=== PATIENT | female | born 1950 | race Caucasian/White ===

== ENCOUNTER 2021-02-09 14:13 | Emergency (ER) | payer MEDICARE, OTHER, SELFPAY ==
[2021-02-09 14:21] VITALS: BP 150/81; PULSE 71; RESP 12; TEMP 36.1; O2SAT 98; BMI 29.2
--- NOTE | 2021-02-09 15:58 | ED_ITS ---
HPI - Neuro Symptoms/Deficit General Chief Complaint: Neuro Symptoms/Deficit Stated Complaint: mom , now has memory loss Time Seen by Provider: 02/09/21 15:49 Source: patient Mode of arrival: Wheelchair Limitations: no limitations History of Present Illness HPI Narrative: Patient is a 70-year-old female here with her to have an MRI. Patient states that early in the morning she received phone call from her sister that her mother had . Patient states she does not remember this phone call in for short time afterwards does not remember anything that was going on. She was seen in outside facility earlier today where she had a workup to include a head CT and a CTA of her head and neck. I do have these notes and the results of the studies to review. It appears that she was treated like a stroke workup. She was eventually discharged from the hospital. Her memory now seems to have returned although she still does not remember everything that happened around the time of the phone call. She stated that the outside facility had talk with her about obtaining an MRI however they did not have 1 available. She was still discharged from the hospital and she comes to this department seeking an MRI because she is going to be traveling home because the events of this morning and wants to make sure is safe for her to travel. On Anticoagulants: No (aspirin 81mg) Related Data Allergies Allergy/AdvReac Type Severity Reaction Status Date / Time Sulfa (Sulfonamide AdvReac Severe Hives Verified 02/09/21 14:24 Antibiotics) Review of Systems Constitutional Constitutional: Denies fever(s) and Denies headache(s) Eyes Eyes: Denies change in vision ENT Ears, Nose, Mouth, and Throat: Denies vertigo, Denies dizziness, Denies headache(s) and Denies disequilibrium Cardiovascular Cardiovascular: Denies chest pain and Denies dyspnea Respiratory Respiratory: Denies dyspnea Gastrointestinal Gastrointestinal: Reports abdominal pain Genitourinary Genitourinary: Denies dysuria Genitourinary: Denies dysuria Musculoskeletal Musculoskeletal: Denies arthralgias, Denies myalgias and Denies tingling Integumentary/Breasts Skin/Breast: Denies lesions and Denies rash Neurologic Neurologic: Denies behavioral changes, Reports confusion, Denies vertigo, Denies dizziness, Denies headache(s), Reports memory loss, Denies convulsions, Denies tingling and Denies disequilibrium Psychiatric Psychiatric: Denies anxiety, Denies behavioral changes, Reports confusion and Reports memory loss Hematologic/Lymphatic On Anticoagulants: No (aspirin 81mg) Allergic/Immunologic Allergic/Immunologic: Denies urticaria Patient History Medical History Patient denies medical problems Social History Smoking Status: Never smoker Smoking Status: Never smoker Substance Use Type: does not use Exam Initial Vital Signs Initial Vital Signs: Vital Signs Temperature 97.0 F L 02/09/21 14:21 Pulse Rate 71 02/09/21 14:21 Respiratory Rate 12 02/09/21 14:21 Blood Pressure 150/81 H 02/09/21 14:21 Pulse Oximetry 98 02/09/21 14:21 Const General: cooperative and comfortable Limitations: mental status not altered HENMT Head: normal to inspection and normocephalic Resp Effort & Inspection: normal respiratory effort Cardio Rate: regular rate Skin Lesions: no lesions Rashes: no rashes Neuro General: patient alert, patient awake and patient oriented x3 Cognition: normal cognition Speech: speech normal Extrem General: capillary refill normal Psych Appearance: grossly normal and well kempt Scores GCS Ramirez coma scale eye opening: Spontaneous [place] coma scale verbal response: Orientated [place] coma scale motor response: Obey commands Ramirez coma scale total score: 15 Course Vital Signs Vital signs: Vital Signs - 8 hr 02/09/21 14:21 Temperature 97.0 F L Pulse Rate 71 Respiratory Rate 12 Blood Pressure 150/81 H Pulse Oximetry 98 MDM - Neuro Symptoms/Deficit MDM Narrative Medical decision making narrative: Patient is alert oriented x3. Has a nonfocal neurologic exam. Her memory seems to have returned since being discharged from the other facility. I have a high suspicion that this was a psychological issue and low concern for CVA/TIA. Unfortunately will also be unable to obtain an MRI given her clinical presentation today. Informed her that if she would like to travel that would be up to her although I felt like it would be okay. She was given return precautions and follow-up instructions. She expressed understanding and agreement. Discharge Plan Departure Patient Disposition: Home Clinical Impression: Transient amnesia Instructions: DI for Amnesia Activity Restrictions/Additional Instructions: Recommend that you continue all of your medications as directed. Contact your primary provider for a follow-up. Return to the emergency department for any new or worsening symptoms Referrals: Jany Erazo ARNP [Primary Care Provider] -
--- NOTE | 2021-02-09 16:03 | PC.NURSE ---
pt reports she got at call that her mom at 0230. reports that it was like a light switch. pt did not remeber anything. she went to the [facility] this am. came her to have an mri. pt GCS 15.
[2021-02-09 16:06] VITALS: BP 147/66; PULSE 66; RESP 16; O2SAT 96
== END 2021-02-09 16:16 | disposition home or self-care (01) ==
PROVIDERS: Emergency Provider Emergency Medicine; PCP Nurse Practitioner Family
DX: R41.3 Other amnesia (principal); R10.9 Unspecified abdominal pain; R41.0 Disorientation, unspecified
CPT/HCPCS: 99281

== ENCOUNTER → 2021-06-07 10:53 | Outpatient (CLI) | payer MEDICARE, OTHER, SELFPAY ==
[2021-06-07 12:43] LABS: BUN Creatinine Ratio 22.5 (6-22); Blood Urea Nitrogen 16 mg/dL (7-17); Calcium 9.7 mg/dL (8.4-10.2); Carbon Dioxide 28 mmol/L (22-32); Chloride 102 mmol/L (98-107); Cholesterol 144 mg/dL (140-199); Estimated Glomerular Filt Rate > 60.0 mL/min (>60); Glucose 96 mg/dL (80-110); HDL Cholesterol 66 mg/dL (40-60); HEMOLYSIS < 15 (0-50); LDL Cholesterol Calculated 54 mg/dL (<100); Potassium 4.3 mmol/L (3.4-5.1); Sodium 139 mmol/L (137-145); Triglycerides 121 mg/dL (35-150)
[2021-06-07 15:24] LABS: Creatinine Urine Random 67.2 mg/dL
[2021-06-07 15:42] LABS: Vitamin D 25 Hydroxy (D3) 81.8 ng/mL (30.0-100.0)
[2021-06-07 15:43] LABS: Microalbumin Urine Random < 0.6 mg/dL (0-1.6)
== END ==
PROVIDERS: PCP Student in an Organized Health Care Education/Training Program; Referring Provider Student in an Organized Health Care Education/Training Program; Visit Provider Student in an Organized Health Care Education/Training Program
DX: E11.9 Type 2 diabetes mellitus without complications (principal); E55.9 Vitamin D deficiency, unspecified
CPT/HCPCS: 36415; 80048; 80061; 82043; 82306; 82570; 83036

== ENCOUNTER 2021-07-24 16:29 | Emergency (ER) | payer MEDICARE, OTHER, SELFPAY ==
[2021-07-24 16:48] VITALS: BP 194/90; PULSE 75; RESP 18; TEMP 36.7; O2SAT 99
--- NOTE | 2021-07-24 16:55 | DI.RAD.S_ITS ---
PROCEDURE: XR SHOULDER LT MIN 2V INDICATIONS: atraumatic shoulder pain TECHNIQUE: 3 views of the shoulder were acquired. COMPARISON: None. FINDINGS: Bones: No acute fractures or dislocations. No suspicious bony lesions. Visualized ribs appear intact. Moderate acromioclavicular osteoarthrosis. Soft tissues: No suspicious soft tissue calcifications. An amorphous calcification is seen posterior to the humeral head, most likely representing calcific tendinopathy. Surgical clips are seen in the left axilla. IMPRESSION: 1. Amorphous calcification posterior to the humeral head is suspicious for calcific tendinitis. 2. Moderate acromioclavicular joint osteoarthrosis. Dictated by: Doc Colby M.D. on 07/24/2021 at 17:36 Approved by: Doc Colby M.D. on 07/24/2021 at 17:37
[2021-07-24] MEDS: CYCLOBENZAPRINE 10 MG TABLET PO (16:58)
[2021-07-24] MEDS: KETOROLAC 30 MG/ML VIAL 15 MG IM (16:58)
[2021-07-24 18:49] VITALS: BP 140/65; PULSE 61; O2SAT 96
--- NOTE | 2021-07-26 11:23 | ED.EXTPRO ---
HPI - Extremity Problem <Brittany Holloway PA-C - Last Filed: 07/26/21 11:42> General Chief complaint: Extremity Problem,Nontraumatic Stated complaint: left shoulder/arm pain in the joint past elbow Time Seen by Provider: 07/24/21 18:28 Source: patient Mode of arrival: Ambulatory Limitations: no limitations History of Present Illness HPI Narrative: 71-year-old female with past medical history type 2 diabetes, hypertension presents to the ED with 2 days of left-sided shoulder pain. Denies trauma. Spontaneous onset of symptoms, aggravated by shoulder, arm movement. Denies numbness, tingling , weakness. Denies chest pain, shortness of breath, fever, chills, nausea, vomiting, lightheadedness, dizziness, syncope. range of movement limited by pain. For Related Data Previous Rx's Medication Instructions Recorded alendronate 70 mg tablet 70 mg PO QWEEK #12 tab 06/12/21 aspirin 81 mg tablet,delayed 81 mg PO DAILY #90 tab 06/12/21 release free style lancets #300 06/12/21 free style test strips #300 06/12/21 lisinopril 10 mg tablet 10 mg PO DAILY #90 tab 06/12/21 metformin 500 mg tablet 1,000 mg PO BID #180 tab 06/12/21 methocarbamol 500 mg tablet 500 mg PO BEDTIME #90 tab 06/12/21 simvastatin 10 mg tablet 10 mg PO BEDTIME #90 tab 06/12/21 Allergies Allergy/AdvReac Type Severity Reaction Status Date / Time Sulfa (Sulfonamide AdvReac Severe Hives Verified 07/24/21 16:52 Antibiotics) Review of Systems <Brittany Holloway PA-C - Last Filed: 07/26/21 11:42> Constitutional Constitutional: Denies chills, Denies fatigue, Denies fever(s), Denies frequent falls, Denies lethargy and Denies weakness Eyes Eyes: Denies change in vision, Denies eye discharge, Denies irritation and Denies loss of vision ENT Ears, Nose, Mouth, and Throat: Denies change in voice, Denies dizziness, Denies neck pain, Denies sore throat and Denies throat swelling Cardiovascular Cardiovascular: Denies chest pain, Denies irregular heart rhythm, Denies lightheadedness, Denies palpitations, Denies dyspnea, Denies dyspnea on exertion and Denies orthopnea Respiratory Respiratory: Denies cough, Denies dyspnea, Denies dyspnea on exertion and Denies wheezing Gastrointestinal Gastrointestinal: Denies abdominal pain, Denies change in bowel habits, Denies diarrhea, Denies nausea and Denies vomiting Musculoskeletal Musculoskeletal: Denies neck pain and Denies numbness Comments: L shoulder, upper arm pain Integumentary/Breasts Skin/Breast: Denies pruritus, Denies erythema, Denies rash and Denies wounds Neurologic Neurologic: Denies behavioral changes, Denies confusion, Denies dizziness, Denies frequent falls, Denies loss of vision, Denies numbness and Denies weakness Psychiatric Psychiatric: Denies anxiety, Denies behavioral changes, Denies confusion, Denies depression, Denies homicidal ideation and Denies suicidal ideation Endocrine Endocrine: Denies fatigue, Denies flushing and Denies palpitations Hematologic/Lymphatic Hematologic/Lymphatic: Denies easy bruising Allergic/Immunologic Allergic/Immunologic: Denies urticaria, Denies throat swelling and Denies wheezing Patient History <Brittany Holloway PA-C - Last Filed: 07/26/21 11:42> Medical History Patient denies medical problems Social History Smoking Status: Never smoker Smoking Status: Never smoker alcohol intake frequency: 0-2 drinks per day Substance Use Type: does not use Exam <Brittany Holloway PA-C - Last Filed: 07/26/21 11:42> Initial Vital Signs Initial Vital Signs: Vital Signs Temperature 98.1 F 07/24/21 16:48 Pulse Rate 75 07/24/21 16:48 Respiratory Rate 18 07/24/21 16:48 Blood Pressure 194/90 H 07/24/21 16:48 Pulse Oximetry 99 07/24/21 16:48 Const General: cooperative HENMT Head: normocephalic and atraumatic Ears: external ears normal and TM's normal bilaterally Nose: external nose normal and No nasal discharge Face and sinus: sinuses nontender, face symmetric, no sinus tenderness and No dry mucous membranes Mouth: oral mucosae normal and moist mucous membranes Teeth and gingiva: dentition normal Throat: tonsils normal and uvula midline Eyes General: appearance normal, both eyes and all related structures Eyelids: eyelids normal Conjunctivae: conjunctivae normal Sclera: sclerae normal Pupils: PERRL EOM: EOM intact bilaterally Neck Neck: normal visual inspection, trachea midline, No lymphadenopathy, No midline deformity and No JVD Lymphatic: No lymphedema Chest Chest: normal inspection of the chest Resp Effort & Inspection: normal respiratory effort, able to speak in complete sentences, no respiratory distress and no use of accessory muscles Auscultation: clear to auscultation bilaterally, no rales, no rhonchi and no wheezes Cardio Rate: regular rate Rhythm: regular rhythm Heart Sounds: no click, no gallops, no murmurs and no rubs Pulses: normal peripheral pulses GI Inspection: non-distended Palpation: soft, no hepatosplenomegaly, No guarding, No pulsatile mass and No tender Auscultation: normal bowel sounds Back/Spine/Pelvis Back: No CVA tenderness Cervical Spine: cervical ROM normal and No pain with cervical ROM Thoracic/Lumbar Spine: thoracic and lumbar spine normal to inspection Skin General: no rashes or lesions noted, No jaundice and No petechiae Neuro General: patient alert, patient oriented x3, gait normal and no focal motor deficits Speech: speech normal Extrem General: no clubbing, cyanosis or edema, no pedal edema and no calf tenderness Other: ROM of left arm, shoulder limited by pain. Neurovascularly intact. Cap refill < 2 sec. Able to touch left and to right shoulder, reassuring for no shoulder dislocation. Psych Appearance: well kempt Mental Status: mental status grossly normal Attitude: cooperative Thought Content: normal and suicidality Judgment: judgment good <Kayley Mclaughlin DO - Last Filed: 07/27/21 08:30> Initial Vital Signs Initial Vital Signs: Vital Signs Temperature 98.1 F 07/24/21 16:48 Pulse Rate 75 07/24/21 16:48 Respiratory Rate 18 07/24/21 16:48 Blood Pressure 194/90 H 07/24/21 16:48 Pulse Oximetry 99 07/24/21 16:48 Course <Brittany Holloway PA-C - Last Filed: 07/26/21 11:42> Course Course Narrative: symptoms improved with Flexeril, Toradol. x-rays shows evidence of calcific tendinitis, negative for fractures, dislocations. Will discharge home with PCP follow-up. Orders Ordered: Discontinued Medications Cyclobenzaprine HCl (Cyclobenzaprine 10 Mg Tablet) 10 mg PO NOW ONE Stop: 07/24/21 16:55 Last Admin: 07/24/21 16:58 Dose: 10 mg Documented by: HENOK Ketorolac Tromethamine (Ketorolac 30 Mg/Ml Vial) 15 mg IM NOW ONE Stop: 07/24/21 16:55 Last Admin: 07/24/21 16:58 Dose: 15 mg Documented by: HENOK <Kayley Mclaughlin DO - Last Filed: 07/27/21 08:30> Orders Ordered: Discontinued Medications Cyclobenzaprine HCl (Cyclobenzaprine 10 Mg Tablet) 10 mg PO NOW ONE Stop: 07/24/21 16:55 Last Admin: 07/24/21 16:58 Dose: 10 mg Documented by: HENOK Ketorolac Tromethamine (Ketorolac 30 Mg/Ml Vial) 15 mg IM NOW ONE Stop: 07/24/21 16:55 Last Admin: 07/24/21 16:58 Dose: 15 mg Documented by: HENOK MDM - Extremity (Nontraumatic) <Brittany Holloway PA-C - Last Filed: 07/26/21 11:42> Imaging Data Shoulder x-ray: Radiologist's Impression: PROCEDURE:? XR SHOULDER LT MIN 2V ? INDICATIONS:? atraumatic shoulder pain ? TECHNIQUE:? 3 views of the shoulder were acquired.? ? COMPARISON:? None. ? FINDINGS:? ? Bones:? No acute fractures or dislocations.? No suspicious bony lesions.? Visualized ribs appear intact.? Moderate acromioclavicular osteoarthrosis. ? Soft tissues:? No suspicious soft tissue calcifications.? An amorphous calcification is seen posterior to the humeral head, most likely representing calcific tendinopathy.? Surgical clips are seen in the left axilla. ? IMPRESSION:? 1. Amorphous calcification posterior to the humeral head is suspicious for calcific tendinitis. 2. Moderate acromioclavicular joint osteoarthrosis. ? ? Dictated by: Doc Colby M.D. on 07/24/2021 at 17:36 ? ? Approved by: Doc Colby M.D. on 07/24/2021 at 17:37 ? MDM Narrative Medical decision making narrative: 71-year-old female with past medical history type 2 diabetes, hypertension presents to the ED with 2 days of left-sided shoulder pain. Concern for fractures, dislocations, sprain, strain. physical exam reassuring, unlikely shoulder dislocation. will give Toradol, Flexeril for pain. Will order x-rays. Likely discharge home. 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 You can take Tylenol for the pain. Return to the ED if worsening symptoms, numbness, tingling, weakness. Follow-up with your primary care provider as soon as possible. Prescriptions: No Action alendronate 70 mg tablet 70 mg PO QWEEK Qty: 12 RF: 3 aspirin 81 mg tablet,delayed release (DR/EC) 81 mg PO DAILY Qty: 90 RF: 3 (DME) free style lancets See Rx Instructions .Route .MEDSUPPLY Qty: 300 RF: 3 (DME) free style test strips See Rx Instructions .Route .MEDSUPPLY Qty: 300 RF: 3 lisinopril 10 mg tablet 10 mg PO DAILY Qty: 90 RF: 3 metformin 500 mg tablet 1,000 mg PO BID Qty: 180 RF: 1 methocarbamol 500 mg tablet 500 mg PO BEDTIME Qty: 90 RF: 3 simvastatin 10 mg tablet 10 mg PO BEDTIME Qty: 90 RF: 3 Referrals: Jaiden Nieves MD [Primary Care Provider] - <Kayley Mclaughlin DO - Last Filed: 07/27/21 08:30> [facility] ED Attending Osbaldoature Attestation: I was immediately available in the department for consultation. Documentation has been reviewed. I agree with assessment and plan.
== END 2021-07-24 18:49 | disposition home or self-care (01) ==
PROVIDERS: Emergency Provider Student in an Organized Health Care Education/Training Program; PCP Student in an Organized Health Care Education/Training Program
DX: M25.512 Pain in left shoulder (principal)
CPT/HCPCS: 73030; 96372; 99283; J1885

== ENCOUNTER → 2021-09-18 10:13 | Outpatient (CLI) | payer MEDICARE, OTHER, SELFPAY ==
--- NOTE | 2021-09-18 10:15 | DI.MG.S_ITS ---
BILATERAL DIGITAL SCREENING MAMMOGRAM 3D/2D WITH CAD WITH AUGMENTATION: 09/18/2021 CLINICAL: Routine screening. Comparison is made to exams dated: 07/28/2020 mammogram, 09/17/2017 mammogram, and 06/30/2012 mammogram - formerly [facility]. There are scattered fibroglandular elements in both breasts. Current study was also evaluated with a Computer Aided Detection (CAD) system. Bilateral breast implants are stable. No significant masses, calcifications, or other findings are seen in either breast. There has been no significant interval change. IMPRESSION: NEGATIVE There is no mammographic evidence of malignancy. A 1 year screening mammogram is recommended. This exam was interpreted at Station ID: [id number]. NOTE: For mammograms, a report in lay terms will be sent to the patient. Approximately 15% of breast malignancies will not be visualized mammographically. In the management of a palpable breast mass, a negative mammogram must not discourage biopsy of a clinically suspicious lesion. Electronically Signed By: Doc flores/nikunj:09/18/2021 11:46:28 letter sent: Normal Exam ACR BI-RADS Category 1: Negative [id number]
== END ==
PROVIDERS: PCP Student in an Organized Health Care Education/Training Program; Referring Provider Student in an Organized Health Care Education/Training Program; Visit Provider Student in an Organized Health Care Education/Training Program
DX: Z12.31 Encounter for screening mammogram for malignant neoplasm of breast (principal)
CPT/HCPCS: 77063; 77067

== ENCOUNTER 2021-12-18 23:31 | Observation (INO) | payer MEDICARE, OTHER, SELFPAY ==
[2021-12-18 23:41] VITALS: PULSE 68; O2SAT 98
[2021-12-18 23:43] VITALS: BP 200/79; PULSE 73; RESP 18; TEMP 37.1; O2SAT 99; BMI 28.5
--- NOTE | 2021-12-18 23:43 | DI.RAD.S_ITS ---
PROCEDURE: XR CHEST 1V INDICATIONS: Chest pain TECHNIQUE: One view of the chest was acquired. COMPARISON: None. FINDINGS: Surgical changes and devices: None. Lungs and pleura: Lungs are clear. No pleural effusions or pneumothorax. Mediastinum: Mediastinal contours appear normal. Heart size is normal. Bones and chest wall: No suspicious bony lesions. Overlying soft tissues appear unremarkable. IMPRESSION: No acute cardiopulmonary process demonstrated radiographically. Dictated by: Alvaro Lewis M.D. on 12/19/2021 at 0:01 Approved by: Alvaro Lewis M.D. on 12/19/2021 at 0:01
[2021-12-18 23:54] VITALS: BP 184/78; PULSE 72; RESP 11; O2SAT 97
--- NOTE | 2021-12-18 23:55 | DI.CT.S_ITS ---
PROCEDURE: CT ANGIO CHEST PE PROTOCOL INDICATIONS: chest pain TECHNIQUE: After the administration of intravenous contrast, 2 mm thick sections acquired from the pulmonary apices to the posterior costophrenic angles. 3-dimensional maximum intensity projection (MIP) coronal and sagittal reformats were then acquired through the thorax. For radiation dose reduction, the following was used: automated exposure control, adjustment of mA and/or kV according to patient size. COMPARISON: None. FINDINGS: Image quality: Excellent. Pulmonary arteries: Pulmonary arteries are normal in size, and demonstrate no intraluminal filling defects to suggest central pulmonary embolism. Lungs and pleura: Lungs are clear. No pleural effusions or pneumothorax. Central and peripheral airways are patent. Mediastinum: Heart size is normal, without pericardial effusion. No mediastinal or hilar adenopathy. Thoracic aorta is normal in caliber and enhancement. Esophagus is normal in caliber, without hiatal hernia. Bones and chest wall: No suspicious bony lesions. Ribs and thoracic spine appear intact throughout. Thyroid gland uniform. No axillary or supraclavicular adenopathy. Abdomen: Visualized upper abdominal solid organs appear normal in the early arterial phase of enhancement. IMPRESSION: No acute finding in the chest. Dictated by: Alvaro Lewis M.D. on 12/19/2021 at 1:08 Approved by: Alvaro Lewis M.D. on 12/19/2021 at 1:09
--- NOTE | 2021-12-18 23:58 | ED_ITS ---
HPI - Chest Pain General Chief Complaint: Chest Pain Stated Complaint: mild tightness/chest pain x1 hour Time Seen by Provider: 12/18/21 23:47 Source: patient Mode of arrival: Ambulatory Limitations: no limitations History of Present Illness HPI narrative: Patient here with . Complains sudden onset of substernal chest pressure that radiated to her back. Both sides. No nausea or sweating. No syncope. No numbness tingling weakness. Pain is improved now. Rates 3/10. No history of coronary disease. No history of aneurysms. Blood pressure noted. It is higher than her baseline according to patient. Patient no distress. No abdominal pain. Related Data Previous Rx's Medication Instructions Recorded alendronate 70 mg tablet 70 mg PO QWEEK #12 tab 06/12/21 aspirin 81 mg tablet,delayed 81 mg PO DAILY #90 tab 06/12/21 release free style lancets #300 06/12/21 free style test strips #300 06/12/21 lisinopril 10 mg tablet 10 mg PO DAILY #90 tab 06/12/21 simvastatin 10 mg tablet 10 mg PO BEDTIME #90 tab 06/12/21 methocarbamol 500 mg tablet 1,000 mg PO Q8H #90 tab 08/01/21 metformin 500 mg tablet 1,000 mg PO BID #240 tab 11/30/21 Allergies Allergy/AdvReac Type Severity Reaction Status Date / Time Sulfa (Sulfonamide AdvReac Severe Hives Verified 08/02/21 14:33 Antibiotics) Review of Systems Review of Systems Narrative: GENERAL: Denies chills, fatigue, malaise, fever, sweats. HEENT: Denies sinus pain, ear pain, sore throat RESPIRATORY: Denies dyspnea, cough CARDIOVASCULAR: Positive chest pain, negative for palpitations GASTROINTESTINAL: Denies nausea, vomiting, abdominal pain : Denies dysuria, frequency, hematuria MUSCULOSKELETAL: denies muscle or bony pain SKIN: Denies rash, skin lesions NEUROLOGIC: Denies weakness, numbness ROS Unobtainable: All systems reviewed & are unremarkable except as noted in HPI and below Patient History Medical History (Updated 12/19/21 @ 05:42 by DARIUSZ Da Silva-) Essential hypertension Hyperlipidemia associated with type 2 diabetes mellitus Non-insulin dependent type 2 diabetes mellitus Osteoporosis Patient denies medical problems Surgical History (Updated 12/19/21 @ 05:42 [facility] History of ankle surgery History of cholecystectomy History of gastric bypass Family History Mother Heart disease Diabetes mellitus Father Heart disease Cancer Social History Smoking Status: Never smoker Smoking Status: Never smoker alcohol intake frequency: 0-2 drinks per day Substance Use Type: does not use Exam Narrative Exam Narrative: GENERAL: in no distress, not toxic not dyspneic HEAD: Normocephalic. EYES: Pupils equal round No scleral icterus. ENT: Mucous membranes moist. NECK: Trachea midline. CARDIOVASCULAR: Regular rate and rhythm without murmurs RESPIRATORY: Clear to auscultation. Breath sounds equal bilaterally. No wheezes, rales, or rhonchi. GASTROINTESTINAL: Abdomen soft, non-tender EXTREMITIES: No gross deformities. BACK: No flank tenderness. NEURO: AOx4. Clear speech SKIN: Warm and dry PSYCH: Not anxious, is cooperative Initial Vital Signs Initial Vital Signs: Vital Signs Pulse Rate 68 12/18/21 23:41 Pulse Oximetry 98 12/18/21 23:41 Course Course Course Narrative: No new issues during course of stay. Blood pressure improved at time of admission. Orders Ordered: ED Orders 12/18/21 23:43 XR chest 1V Stat EKG-12 Lead Stat 12/18/21 23:52 Complete Blood Count AUTO DIFF Stat Comprehensive Metabolic Panel Stat Lipase Stat Magnesium Stat Troponin & CK Cardiac Panel Stat 12/18/21 23:55 CT angio chest PE protocol Stat 12/18/21 23:59 COVID19 -Nasal swab/Pre-Proc Stat 12/19/21 02:06 Trop I [Troponin I] Stat Acetaminophen (Acetaminophen 325 Mg Tablet) 650 mg PO Q6HR PRN PRN Reason: Fever/Mild Pain (1-3) Aspirin (Aspirin Ec 81 Mg Tablet) 81 mg PO DAILY [place] Atorvastatin Calcium (Atorvastatin 20 Mg Tablet) 10 mg PO BEDTIME [place] Dextrose (Dextrose 50 % In Water 25 Gm/50 Ml Syringe) 25 gm IV PRN PRN PRN Reason: Hypoglycemia Enoxaparin Sodium (Enoxaparin 40 Mg/0.4 Ml Syringe) 40 mg SUBCUT DAILY [place] Insulin Human Lispro (Insulin Lispro 100 Unit/Ml 3ml Vial) 0 unit SUBCUT ACHS [place]; Protocol Lisinopril (Lisinopril 10 Mg Tablet) 10 mg PO DAILY [place] Metformin HCl (Metformin Hcl 500 Mg Tablet) 1,000 mg PO BID [place] Methocarbamol (Methocarbamol 500 Mg Tablet) 1,000 mg PO Q8H [place] Morphine Sulfate (Morphine 2 Mg/Ml Inj) 2 mg IV Q5MIN PRN PRN Reason: Chest Pain Naloxone HCl (Naloxone 0.4 Mg/Ml Vial) 0.2 mg IV Q2MIN PRN PRN Reason: Opiate Reversal Nitroglycerin (Nitroglycerin 0.4 Mg Sl Tab) 0.4 mg SL [id number] PRN PRN Reason: Chest Pain Ondansetron HCl (Ondansetron 4 Mg/2 Ml Inj) 4 mg IV Q8HR PRN PRN Reason: Nausea And Vomiting Discontinued Medications Aspirin (Aspirin 81 Mg Chew Tab) 243 mg PO NOW ONE Stop: 12/19/21 01:57 Last Admin: 12/19/21 02:14 Dose: 243 mg Documented by: LEIGHANN Sodium Chloride (Normal Saline 0.9%) 500 mls @ 1,000 mls/hr IV BOLUS ONE Stop: 12/19/21 00:27 Last Infusion: 12/19/21 01:04 Dose: 0 mls/hr Documented by: Admin: 12/19/21 00:22 Dose: 1,000 mls/hr Documented by: LEIGHANN Reevaluation(s) Reevaluation #1: Reviewed with patient and has been results. Blood pressure 132/60. Has improved markedly. No chest pain. Patient did take baby aspirin prior to arrival. They agree for observation admission for stress test. Time: 02:06 Consultations Consultation #1: Spoke with hospitalist, Elle Robles, will admit observation and for stress test. Time: 02:05 Vital Signs Vital signs: Vital Signs - 8 hr 12/18/21 23:41 12/18/21 23:43 12/18/21 23:54 Temperature 98.7 F Pulse Rate 68 73 72 Respiratory Rate 18 11 L Blood Pressure 200/79 H 184/78 H Pulse Oximetry 98 99 97 12/19/21 00:00 12/19/21 00:36 12/19/21 01:00 Temperature Pulse Rate 66 68 62 Respiratory Rate 19 20 10 L Blood Pressure 186/78 H Pulse Oximetry 98 97 95 12/19/21 01:03 12/19/21 01:30 12/19/21 02:00 Temperature Pulse Rate 64 64 65 Respiratory Rate 14 12 16 Blood Pressure 147/67 H 132/60 132/61 Pulse Oximetry 97 95 96 MDM - Chest Pain Differential Diagnosis Differential diagnosis: Likely stable angina, unstable angina pectoris, atypical chest pain, st elevation myocardial infarction and chest pain Lab Data Result diagrams: 12/18/21 23:52 12/18/21 23:52 Labs: Lab Results 12/18/21 12/18/21 12/18/21 Range/Units 23:52 23:52 23:59 WBC 7.5 (4.5-11.0) X10^3/uL RBC 3.97 L (4.0-5.2) X10^6/uL Hgb 11.9 L (12.0-16.0) g/dL Hct 35.8 L (36-46) % MCV 90.2 (80-100) fL MCH 29.8 (26-34) PG MCHC 33.1 (30-36) % RDW 13.2 (11.6-14.8) % Plt Count 227 (150-400) X10^3/uL Neut % (Auto) 48.0 L (50-75) % Lymph % (Auto) 38.4 (25-40) % [place] % (Auto) 10.7 (3-14) % Eos % (Auto) 1.9 L (2-4) % Baso % (Auto) 1.0 (0-2) % Neut # (Auto) 3600 (0112-5960) /uL Lymph # (Auto) 2900 (5197-4419) /uL [place] # (Auto) 800 (0-900) /uL Eos # (Auto) 100 (0-450) /uL Baso # (Auto) 100 (0-100) /uL Sodium 138 (137-145) mmol/L Potassium 3.8 (3.4-5.1) mmol/L Chloride 104 (98-107) mmol/L Carbon Dioxide 29 (22-32) mmol/L BUN 20 H (7-17) mg/dL Creatinine 0.75 (0.52-1.04) mg/dL Estimated GFR > 60.0 (>60) mL/min BUN/Creatinine Ratio 26.7 H (6-22) Glucose 111 H (80-110) mg/dL Calcium 9.7 (8.4-10.2) mg/dL Magnesium 1.9 (1.6-2.3) mg/dL Total Bilirubin 0.3 (0.2-1.3) mg/dL AST 32 (14-36) IU/L ALT 26 (<35) IU/L Alkaline Phosphatase 57 (38-126) U/L Total Creatine Kinase 63 (30-135) U/L CK-MB (CK-2) TNP CK-MB (CK-2) Rel Index TNP Troponin I < 0.012 (0.01-0.034) ng/mL Total Protein 7.2 (6.3-8.2) g/dL Albumin 4.3 (3.5-5.0) g/dL Globulin 2.9 (1.7-4.1) g/dL Albumin/Globulin Ratio 1.5 (1.0-2.8) Lipase 145 (23-300) U/L SARS-CoV-2 (PCR) Negative (Negative) 12/19/21 Range/Units 02:06 WBC (4.5-11.0) X10^3/uL RBC (4.0-5.2) X10^6/uL Hgb (12.0-16.0) g/dL Hct (36-46) % MCV (80-100) fL MCH (26-34) PG MCHC (30-36) % RDW (11.6-14.8) % Plt Count (150-400) X10^3/uL Neut % (Auto) (50-75) % Lymph % (Auto) (25-40) % [place] % (Auto) (3-14) % Eos % (Auto) (2-4) % Baso % (Auto) (0-2) % Neut # (Auto) (7903-8491) /uL Lymph # (Auto) (5729-0406) /uL [place] # (Auto) (0-900) /uL Eos # (Auto) (0-450) /uL Baso # (Auto) (0-100) /uL Sodium (137-145) mmol/L Potassium (3.4-5.1) mmol/L Chloride (98-107) mmol/L Carbon Dioxide (22-32) mmol/L BUN (7-17) mg/dL Creatinine (0.52-1.04) mg/dL Estimated GFR (>60) mL/min BUN/Creatinine Ratio (6-22) Glucose (80-110) mg/dL Calcium (8.4-10.2) mg/dL Magnesium (1.6-2.3) mg/dL Total Bilirubin (0.2-1.3) mg/dL AST (14-36) IU/L ALT (<35) IU/L Alkaline Phosphatase (38-126) U/L Total Creatine Kinase (30-135) U/L CK-MB (CK-2) CK-MB (CK-2) Rel Index Troponin I < 0.012 (0.01-0.034) ng/mL Total Protein (6.3-8.2) g/dL Albumin (3.5-5.0) g/dL Globulin (1.7-4.1) g/dL Albumin/Globulin Ratio (1.0-2.8) Lipase (23-300) U/L SARS-CoV-2 (PCR) (Negative) Imaging Data Chest x-ray: Radiologist's Impression: [place] [address] XRay Report Signed Patient: Mery Bishop MR#: [id number] : 1950 Acct:[id number] Age/Sex: 71 / F Date of Service: 12/18/21 Loc: ED Accession Number: [id number] ?? Procedure: XR chest 1V Ordering Provider: Javier Hall MD PROCEDURE:? XR CHEST 1V ? INDICATIONS:? Chest pain ? TECHNIQUE:? One view of the chest was acquired.? ? COMPARISON:? None. ? FINDINGS:? ? Surgical changes and devices:? None.? ? Lungs and pleura:? Lungs are clear.? No pleural effusions or pneumothorax.? ? Mediastinum:? Mediastinal contours appear normal.? Heart size is normal.? ? Bones and chest wall:? No suspicious bony lesions.? Overlying soft tissues appear unremarkable.? ? IMPRESSION:? No acute cardiopulmonary process demonstrated radiographically. ? ? Dictated by: Alvaro Lewis M.D. on 12/19/2021 at 0:01 ? ? Approved by: Alvaro Lewis M.D. on 12/19/2021 at 0:01 ? CT scan - chest: Radiologist's Impression: [address] [address] [address] Scan Report Signed Patient: Mery Bishop MR#: [id number] : 1950 Acct:[id number] Age/Sex: 71 / F Date of Service: 12/18/21 Loc: ED Accession Number: [id number] ?? Procedure: CT angio chest PE protocol Ordering Provider: Javier Hall MD PROCEDURE:? CT ANGIO CHEST PE PROTOCOL ? INDICATIONS:? chest pain ? TECHNIQUE:? After the administration of intravenous contrast, 2 mm thick sections acquired from the pulmonary apices to the posterior costophrenic angles.? 3-dimensional maximum intensity projection (MIP) coronal and sagittal reformats were then acquired through the thorax.? For radiation dose reduction, the following was used:? automated exposure control, adjustment of mA and/or kV according to patient size.? ? COMPARISON:? None. ? FINDINGS:? Image quality:? Excellent.? ? Pulmonary arteries:? Pulmonary arteries are normal in size, and demonstrate no intraluminal filling defects to suggest central pulmonary embolism.? ? Lungs and pleura:? Lungs are clear.? No pleural effusions or pneumothorax.? Central and peripheral airways are patent.? ? Mediastinum:? Heart size is normal, without pericardial effusion.? No mediastinal or hilar adenopathy.? Thoracic aorta is normal in caliber and enhancement.? Esophagus is normal in caliber, without hiatal hernia.? ? Bones and chest wall:? No suspicious bony lesions.? Ribs and thoracic spine appear intact throughout.? Thyroid gland uniform.? No axillary or supraclavicular adenopathy.? ? Abdomen:? Visualized upper abdominal solid organs appear normal in the early arterial phase of enhancement.? ? IMPRESSION:? No acute finding in the chest. ? ? Dictated by: Alvaro Lewis M.D. on 12/19/2021 at 1:08 ? ? Approved by: Alvaro Lewis M.D. on 12/19/2021 at 1:09 ? ECG Data Interpretation: Normal sinus rhythm rate [address] elevation or depression. Normal EKG MDM Narrative Medical decision making narrative: Appropriate for admission. Patient will be boarded here in the department due to bed shortage. Appropriate for stress test. Examined laboratory studies and imaging otherwise reassuring. Discharge Plan Departure Patient Disposition: Admitted as Observation Clinical Impression: Chest pain Admit Date/Time: 12/19/21 02:07 Admit Provider: Elle Robles
[2021-12-19] VITALS (25 sets, daily range): BP systolic 120–186; BP diastolic 59–78; PULSE 51–103; RESP 10–20; TEMP 36.1–36.7; O2SAT 95–99; BMI 28.5
[2021-12-19 00:06] LABS: Add Manual Diff / Slide Review NO; Basophils Absolute Auto 100 /uL (0-100); Eosinophils Absolute Auto 100 /uL (0-450); Eosinophils Percent Auto 1.9 % (2-4); Hematocrit 35.8 % (36-46); Hemoglobin 11.9 g/dL (12.0-16.0); Lymphocytes Absolute Auto 2900 /uL (1100-4500); Lymphocytes Percent Auto 38.4 % (25-40); Mean Corpuscular HGB Conc 33.1 % (30-36); Mean Corpuscular Hemoglobin 29.8 PG (26-34); Mean Corpuscular Volume 90.2 fL (80-100); Monocytes Absolute Auto 800 /uL (0-900); Monocytes Percent Auto 10.7 % (3-14); Neutrophils Absolute Auto 3600 /uL (1500-7000); Platelet Count 227 X10^3/uL (150-400); Red Blood Cell Count 3.97 X10^6/uL (4.0-5.2); Red Cell Distribution Width 13.2 % (11.6-14.8); White Blood Cell Count 7.5 X10^3/uL (4.5-11.0)
[2021-12-19 00:13] LABS: Alanine Aminotransferase 26 IU/L (<35); Albumin 4.3 g/dL (3.5-5.0); Albumin Globulin Ratio 1.5 (1.0-2.8); Alkaline Phosphatase 57 U/L (38-126); Aspartate Aminotransferase 32 IU/L (14-36); BUN Creatinine Ratio 26.7 (6-22); Bilirubin Total 0.3 mg/dL (0.2-1.3); Blood Urea Nitrogen 20 mg/dL (7-17); Calcium 9.7 mg/dL (8.4-10.2); Carbon Dioxide 29 mmol/L (22-32); Chloride 104 mmol/L (98-107); Creatine Kinase 63 U/L (30-135); Estimated Glomerular Filt Rate > 60.0 mL/min (>60); Globulin 2.9 g/dL (1.7-4.1); Glucose 111 mg/dL (80-110); HEMOLYSIS < 15 (0-50); Lipase 145 U/L (23-300); Magnesium 1.9 mg/dL (1.6-2.3); Potassium 3.8 mmol/L (3.4-5.1); Sodium 138 mmol/L (137-145); Total Protein 7.2 g/dL (6.3-8.2)
[2021-12-19 00:21] LABS: COVID19 -Nasal RAPID Negative (Negative)
[2021-12-19] MEDS: SODIUM CHLORIDE 0.9% 500 ML 1000 ML IV (00:22)
[2021-12-19 00:24] LABS: Troponin I < 0.012 ng/mL (0.01-0.034)
[2021-12-19] MEDS: ASPIRIN 81 MG CHEW TAB 243 MG PO (02:14)
[2021-12-19 02:37] LABS: Troponin I < 0.012 ng/mL (0.01-0.034)
--- NOTE | 2021-12-19 04:29 | PM.HP.1 ---
History of Present Illness History of Present Illness Date Patient Seen: 12/19/21 Time Patient Seen: 02:36 Chief complaint: mild tightness/chest pain x1 hour Narrative: Mery Bishop is a 71 year old female with a history of essential hypertension, hyperlipidemia diabetes, and chronic low back pain who was brought into the ED by her spouse complaining of sudden onset of substernal Banding, squeezing chest pressure that radiated bilaterally to her back.? Intense pain lasted approximately 5 minutes, entirety of chest pain episode lasted for approximately 1 hour. Pain resolved in ED. ? Patient denies history of coronary disease, aneurysms, abd pain, nausea, Vomiting, sweating, syncope, Cough, upper resp. s/s, numbness, tingling, weakness, falls, changes in vision, recent illness,injury or trauma.? Patient initially presented with the blood pressure 200/79, which improved with resolution of chest pain. Patient has never had an event like this prior, no changes in medication, positive family history of heart disease. Patient's admitting vitals temp 98.7?, BP 132/60, HR 64, RR 12, O2 saturation 95% on room air. HGB 11.9, HCT 35.8, CMP-WNL, troponin WNL, EKG sinus rhythm, chest x-ray no acute cardiopulmonary processes, chest CTA negative for dissection, or PE. Patient admitted for chest pain rule. Patient History Medical History (Updated 12/19/21 @ 05:42 by MADELEINE Da Silva) Essential hypertension Hyperlipidemia associated with type 2 diabetes mellitus Non-insulin dependent type 2 diabetes mellitus Osteoporosis Patient denies medical problems Surgical History (Updated 12/19/21 @ 05:42 by MADELEINE Da Silva) History of ankle surgery History of cholecystectomy History of gastric bypass Family & Social History Family History Mother Heart disease Diabetes mellitus Father Heart disease Cancer Safety & Behavioral: Feels Safe in Current Yes Environment Tobacco & Substance use: Smoking Status Never smoker alcohol intake frequency 0-2 drinks per day Substance Use Type does not use Meds Home Medications and Allergies Home Medications Medication Instructions Recorded Confirmed Type alendronate 70 mg tablet 70 mg PO QWEEK #12 tab 06/12/21 08/02/21 Rx aspirin 81 mg tablet,delayed 81 mg PO DAILY #90 tab 06/12/21 08/02/21 Rx release free style lancets #300 06/12/21 08/02/21 Rx free style test strips #300 06/12/21 08/02/21 Rx lisinopril 10 mg tablet 10 mg PO DAILY #90 tab 06/12/21 08/02/21 Rx simvastatin 10 mg tablet 10 mg PO BEDTIME #90 tab 06/12/21 08/02/21 Rx methocarbamol 500 mg tablet 1,000 mg PO Q8H #90 tab 08/01/21 08/02/21 Rx metformin 500 mg tablet 1,000 mg PO BID #240 tab 11/30/21 Rx Allergies Allergy/AdvReac Type Severity Reaction Status Date / Time Sulfa (Sulfonamide AdvReac Severe Hives Verified 08/02/21 14:33 Antibiotics) Review of Systems Review of Systems Narrative: All 12 point systems reviewed with the patient and are negative except otherwise documented. Exam Vital Signs (past 8 hours): - 12/18/21 23:41 12/18/21 23:43 12/18/21 23:54 Temperature 98.7 F Pulse Rate 68 73 72 Respiratory Rate 18 11 L Blood Pressure 200/79 H 184/78 H Pulse Oximetry 98 99 97 12/19/21 00:00 12/19/21 00:36 12/19/21 01:00 Temperature Pulse Rate 66 68 62 Respiratory Rate 19 20 10 L Blood Pressure 186/78 H Pulse Oximetry 98 97 95 12/19/21 01:03 12/19/21 01:30 12/19/21 02:00 Temperature Pulse Rate 64 64 65 Respiratory Rate 14 12 16 Blood Pressure 147/67 H 132/60 132/61 Pulse Oximetry 97 95 96 Oxygen Delivery Method Room Air Narrative Exam Narrative: General: Patient is a well-developed, well-nourished female in no distress at this time. HEENT: Normocephalic, atraumatic, extraocular muscles intact, oral pharynx is clear and mucous membranes are moist. Neck is supple and symmetric, trachea is midline, no adenopathy, no thyroid enlargement, nontender, no masses palpated. Negative for JVD Chest: Normal AP diameter and contour without kyphoscoliosis, no nasal flaring, retractions, or tachypneic labored Lungs: Auscultation of all lung stoner are clear without adventitious sounds, wheezes, rhonchi, or rales. Cardio: S1 & S2 with regular rate and rhythm without murmur, rubs, or gallops, no carotid bruit, no cardiac pulsations present. Abdomen: Soft nontender, negative for organomegaly, or masses. Bowel sounds are present in all 4 quadrants without guarding or rebound, no CVA tenderness. Musculoskeletal: Muscle strength and tone are equal within normal limits, no deformity, crepitus, effusions, cyanosis, clubbing or edema present. Full range of motion intact radial and pedal pulses are normal. Skin: Warm dry and intact without rashes, ulcerations or petechiae. Neuro: Alert and orientated x3, strength is +5/5 in all extremities, sensation to touch intact, no gross deficits noted of cranial nerves. Psych: Patient has a well-kept appearance, appropriate affect, mental status attitude thought context and judgment are appropriate for age. Objective Labs Result Diagrams: 12/18/21 23:52 12/18/21 23:52 Labs: Laboratory Results - last 24 hr 12/18/21 12/18/21 12/18/21 23:52 23:52 23:59 WBC 7.5 RBC 3.97 L Hgb 11.9 L Hct 35.8 L MCV 90.2 MCH 29.8 MCHC 33.1 RDW 13.2 Plt Count 227 Neut % (Auto) 48.0 L Lymph % (Auto) 38.4 [place] % (Auto) 10.7 Eos % (Auto) 1.9 L Baso % (Auto) 1.0 Neut # (Auto) 3600 Lymph # (Auto) 2900 [place] # (Auto) 800 Eos # (Auto) 100 Baso # (Auto) 100 Sodium 138 Potassium 3.8 Chloride 104 Carbon Dioxide 29 BUN 20 H Creatinine 0.75 Estimated GFR > 60.0 BUN/Creatinine Ratio 26.7 H Glucose 111 H Calcium 9.7 Magnesium 1.9 Total Bilirubin 0.3 AST 32 ALT 26 Alkaline Phosphatase 57 Total Creatine Kinase 63 CK-MB (CK-2) TNP CK-MB (CK-2) Rel Index TNP Troponin I < 0.012 Total Protein 7.2 Albumin 4.3 Globulin 2.9 Albumin/Globulin Ratio 1.5 Lipase 145 SARS-CoV-2 (PCR) Negative 12/19/21 02:06 WBC RBC Hgb Hct MCV MCH MCHC RDW Plt Count Neut % (Auto) Lymph % (Auto) [place] % (Auto) Eos % (Auto) Baso % (Auto) Neut # (Auto) Lymph # (Auto) [place] # (Auto) Eos # (Auto) Baso # (Auto) Sodium Potassium Chloride Carbon Dioxide BUN Creatinine Estimated GFR BUN/Creatinine Ratio Glucose Calcium Magnesium Total Bilirubin AST ALT Alkaline Phosphatase Total Creatine Kinase CK-MB (CK-2) CK-MB (CK-2) Rel Index Troponin I < 0.012 Total Protein Albumin Globulin Albumin/Globulin Ratio Lipase SARS-CoV-2 (PCR) Assessment & Plan Assessment & Plan narrative: Mery Bishop is a 71 year old female with a history of essential hypertension, hyperlipidemia, diabetes, and chronic low back pain who presented with sudden onset of substernal Banding, squeezing chest pressure that radiated bilaterally to her back, and presenting B/P of 200/79, and a heart score of 5. Patient will be admitted for risk stratification and workup for chest pain rule out. 1. Chest pain (substernal squeezing band like radiating pain bilaterally to back), acute, in the setting of essential hypertension, acute on chronic, present on admission -Heart Score:5, initial B/P200/79, on admit 132/60 -Continue atorvastatin, ASA -Risk stratification -echo & stress test ordered for tomorrow -Lipids, A1C, TSH, will trend troponin -Troponin <0.012 -Ortho stats 2. Llo-Gotozcy-rxvawkvht type 2 diabetes, acute on chronic, resulting in secondary Hyperlipidemia, chronic, present on admission -patient admitted on diabetes protocol, blood sugar checks a.c. HS -Admit BS 111 -A1c ordered -Low dose sliding scale -continue metformin 3. Overweight as evidence by BMI of 28.5, acute on chronic, present on admission -consider dietary counseling 4. Chronic low back pain, chronic, present on admission -continue methocarbamol Code status:Full Surrogate decision maker: Spouse Antolin Bishop COVID PCR:Negative COVID vaccination: Pfizer plus booster DVT/VTE prophylaxis:LOvenox 40mg & scd's Disposition: Patient admitted for observation expected length of stay less than 2 midnights. I have utilized all available immediate resources to obtain, update, or review the patient's current medications. I confirmed that the patient's advanced care plan is present, Code status is documented and/or surrogate decision maker is listed in the patient's medical record. Time Spent With Patient Critical Care time: I spent a total of [] minutes of critical care time on this patient's care today; this time is exclusive of procedural time. Scores GCS Ramirez coma scale eye opening: Spontaneous Ramirez coma scale verbal response: Orientated Ramirez coma scale motor response: Obey commands [place] coma scale total score: 15
[2021-12-19 07:27] LABS: Cholesterol 145 mg/dL (140-199); HDL Cholesterol 61 mg/dL (40-60); LDL Cholesterol Calculated 65 mg/dL (<100); Triglycerides 97 mg/dL (35-150)
[2021-12-19 07:30] LABS: Hemoglobin A1C% w Est Avg Glu 6.5 % (4.0-6.0)
[2021-12-19 07:39] LABS: NT-proBNP (BNP-Adult 18+) 450 pg/mL (<125)
[2021-12-19 07:58] LABS: TSH w/ Reflex to FT4 8.25 uIU/mL (0.47-4.68)
[2021-12-19 08:29] LABS: Free T4, Direct Thyroxine 1.29 ng/dL (0.78-2.19)
[2021-12-19] MEDS: ENOXAPARIN 40 MG/0.4 ML SYRINGE SUBCUT (08:47)
[2021-12-19] MEDS: METFORMIN HCL 500 MG TABLET 1000 MG PO ×2 (08:47→20:46)
[2021-12-19] MEDS: lisinopriL 10 MG TABLET PO (08:47)
[2021-12-19] MEDS: ASPIRIN EC 81 MG TABLET PO (08:47)
[2021-12-19] MEDS: methocarbamoL 500 MG TABLET 1000 MG PO ×2 (08:47→23:02)
--- NOTE | 2021-12-19 10:21 | PC.NURSE ---
0815 Pt to room 202 via w/c from ER. Pt is awake, alert, and oriented x3. Pt denies pain, chest pain, nausea, or shortness of breath. Spouse Antolin is at the bedside. Pt oriented to room, call light, bed controls, and tv controls. Requested Pt call for assisted as needed.
--- NOTE | 2021-12-19 14:30 | PM.PN.1 ---
Subjective Subjective Date Patient Seen: 12/19/21 Time Patient Seen: 08:00 Interval history: Today she notes her chest pain has resolved. She feels much improved. Exam Vital Signs (past 8 hours): - 12/19/21 07:00 12/19/21 08:00 12/19/21 08:51 Temperature 97 F L Pulse Rate 58 L 62 58 L Pulse Rate [Orthostatic Lying] 54 L Pulse Rate [Orthostatic Sitting] 58 L Pulse Rate [Orthostatic Standing] 58 L Respiratory Rate 13 12 Blood Pressure 150/76 H 142/67 H Blood Pressure [Orthostatic Lying] 130/60 Blood Pressure [Orthostatic Sitting] 141/67 H Blood Pressure [Orthostatic Standing] 146/67 H Pulse Oximetry 98 97 12/19/21 09:13 12/19/21 12:00 12/19/21 13:00 Temperature 97.2 F L Pulse Rate 54 L Pulse Rate [Orthostatic Lying] Pulse Rate [Orthostatic Sitting] Pulse Rate [Orthostatic Standing] Respiratory Rate 14 Blood Pressure 130/60 Blood Pressure [Orthostatic Lying] Blood Pressure [Orthostatic Sitting] Blood Pressure [Orthostatic Standing] Pulse Oximetry 97 99 99 Oxygen Delivery Method Room Air Oxygen Flow Rate 0 Narrative Exam Narrative: GEN: no acute distress CV: regular rate and rhythm, no murmurs PULM: clear bilaterally, no wheezes, rhonchi, rales ABD: soft, nontender, nondistended, no organomegaly Objective Labs Result Diagrams: 12/18/21 23:52 12/18/21 23:52 Labs: Laboratory Results - last 24 hr 12/18/21 12/18/21 12/18/21 23:52 23:52 23:59 WBC 7.5 RBC 3.97 L Hgb 11.9 L Hct 35.8 L MCV 90.2 MCH 29.8 MCHC 33.1 RDW 13.2 Plt Count 227 Neut % (Auto) 48.0 L Lymph % (Auto) 38.4 [place] % (Auto) 10.7 Eos % (Auto) 1.9 L Baso % (Auto) 1.0 Neut # (Auto) 3600 Lymph # (Auto) 2900 [place] # (Auto) 800 Eos # (Auto) 100 Baso # (Auto) 100 Sodium 138 Potassium 3.8 Chloride 104 Carbon Dioxide 29 BUN 20 H Creatinine 0.75 Estimated GFR > 60.0 BUN/Creatinine Ratio 26.7 H Glucose 111 H Hemoglobin A1c Calcium 9.7 Magnesium 1.9 Total Bilirubin 0.3 AST 32 ALT 26 Alkaline Phosphatase 57 Total Creatine Kinase 63 CK-MB (CK-2) TNP CK-MB (CK-2) Rel Index TNP Troponin I < 0.012 NT-Pro-B Natriuret Pep Total Protein 7.2 Albumin 4.3 Globulin 2.9 Albumin/Globulin Ratio 1.5 Triglycerides Cholesterol LDL Cholesterol, Calc HDL Cholesterol Lipase 145 TSH Free T4 SARS-CoV-2 (PCR) Negative 12/19/21 12/19/21 12/19/21 02:06 06:53 06:53 WBC RBC Hgb Hct MCV MCH MCHC RDW Plt Count Neut % (Auto) Lymph % (Auto) [place] % (Auto) Eos % (Auto) Baso % (Auto) Neut # (Auto) Lymph # (Auto) [place] # (Auto) Eos # (Auto) Baso # (Auto) Sodium Potassium Chloride Carbon Dioxide BUN Creatinine Estimated GFR BUN/Creatinine Ratio Glucose Hemoglobin A1c 6.5 H Calcium Magnesium Total Bilirubin AST ALT Alkaline Phosphatase Total Creatine Kinase CK-MB (CK-2) CK-MB (CK-2) Rel Index Troponin I < 0.012 NT-Pro-B Natriuret Pep 450 H Total Protein Albumin Globulin Albumin/Globulin Ratio Triglycerides 97 Cholesterol 145 LDL Cholesterol, Calc 65 HDL Cholesterol 61 H Lipase TSH Free T4 SARS-CoV-2 (PCR) 12/19/21 06:53 WBC RBC Hgb Hct MCV MCH MCHC RDW Plt Count Neut % (Auto) Lymph % (Auto) [place] % (Auto) Eos % (Auto) Baso % (Auto) Neut # (Auto) Lymph # (Auto) [place] # (Auto) Eos # (Auto) Baso # (Auto) Sodium Potassium Chloride Carbon Dioxide BUN Creatinine Estimated GFR BUN/Creatinine Ratio Glucose Hemoglobin A1c Calcium Magnesium Total Bilirubin AST ALT Alkaline Phosphatase Total Creatine Kinase CK-MB (CK-2) CK-MB (CK-2) Rel Index Troponin I NT-Pro-B Natriuret Pep Total Protein Albumin Globulin Albumin/Globulin Ratio Triglycerides Cholesterol LDL Cholesterol, Calc HDL Cholesterol Lipase TSH 8.25 H Free T4 1.29 SARS-CoV-2 (PCR) [facility] Medical History (Updated 12/19/21 @ 05:42 by DARIUSZ Da Silva-GINA) Essential hypertension Hyperlipidemia associated with type 2 diabetes mellitus Non-insulin dependent type 2 diabetes mellitus Osteoporosis Patient denies medical problems Surgical History (Updated 12/19/21 @ 05:42 by Elle Robles [employer] REPORTER-) History of ankle surgery History of cholecystectomy History of gastric bypass Family History Mother Heart disease Diabetes mellitus Father Heart disease Cancer Social History household members: spouse and family Smoking Status: Never smoker Assessment & Plan Assessment & Plan narrative: Ms. Bishop is a 71W with PMH HTN, HL, DM and chronic low back pain who presented with sudden onset of substernal chest pressure 1. Chest pain -Heart Score:5 -Continue atorvastatin, ASA -ordered for stress test -Lipids, A1C, TSH, will trend troponin -Troponin <0.012 2. Anb-Mmvcodp-eturddkpw type 2 diabetes, acute on chronic, resulting in secondary Hyperlipidemia, chronic, present on admission -patient admitted on diabetes protocol, blood sugar checks a.c. HS -Admit BS 111 -A1c ordered -Low dose sliding scale -continue metformin 3. Overweight as evidence by BMI of 28.5, acute on chronic, present on admission -consider dietary counseling 4. Chronic low back pain, chronic, present on admission -continue methocarbamol Dispo: patient was ordered for stress test, and would have been discharged if stress test reassuring. However delay in discharge occurred due to stress test not being available today. Time Spent With Patient Critical Care time: I spent a total of [] minutes of critical care time on this patient's care today; this time is exclusive of procedural time. Quality VTE Deep Vein Thrombosis/Pulmonary Embolism Present on Admission: No
[2021-12-19] MEDS: SODIUM CHLORIDE 0.9% FLUSH 10 ML IV (20:46)
[2021-12-19] MEDS: ATORVASTATIN 20 MG TABLET 10 MG PO (20:46)
--- NOTE | 2021-12-19 21:22 | PC.NURSE ---
Patient is alert and oriented. Breath sounds CTA with RA sat of 98%. HRR. Denied nausea. BT present and had BM at shift change. Denied dysuria, frequency or urgency with urination. Is independent with mobility and steady on feet. Denied pain. Wearing bilateral calf SCD's. Fall risk score is moderate. Will be NPO at 0500 for planned stress test in the a.m. Patient aware and verbalized understanding.
[2021-12-20] VITALS (9 sets, daily range): BP systolic 127–144; BP diastolic 59–75; PULSE 58–87; RESP 14–18; TEMP 36.2–36.3; O2SAT 97–99
[2021-12-20] MEDS: ASPIRIN EC 81 MG TABLET PO (08:30)
[2021-12-20] MEDS: METFORMIN HCL 500 MG TABLET 1000 MG PO (08:30)
[2021-12-20] MEDS: ENOXAPARIN 40 MG/0.4 ML SYRINGE SUBCUT (08:30)
[2021-12-20] MEDS: lisinopriL 10 MG TABLET PO (08:30)
[2021-12-20] MEDS: SODIUM CHLORIDE 0.9% FLUSH 10 ML IV (08:31)
--- NOTE | 2021-12-20 14:15 | CM.IDA ---
Initial DCP Assessment Note Pt is a 71 yo female, resident of [place], arrived with tightness and chest pain yesterday and DC home today after she cleared her stress test PCP: Jaiden Marie: [facility] Reviewed chart, pt discussed in multidisciplinary rounds this morning. According to ROMAN Walton, patient passed her stress test and is eager to return home. 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
--- NOTE | 2021-12-20 16:56 | PM.DS.1 ---
History of Present Illness History of Present Illness Chief complaint: mild tightness/chest pain x1 hour Narrative: Per Elle Robles: Mery Bishop is a 71 year old female with a history of essential hypertension, hyperlipidemia diabetes, and chronic low back pain who was brought into the ED by her spouse complaining of? sudden onset of substernal Banding, squeezing chest pressure that radiated bilaterally to her back.? Intense pain lasted approximately 5 minutes, entirety of chest pain episode lasted for approximately 1 hour. Pain resolved in ED. ? Patient denies history of coronary disease, aneurysms, abd pain, nausea, Vomiting, sweating, syncope, Cough, upper resp. s/s, numbness, tingling, weakness, falls, changes in vision, recent illness,injury or trauma.? Patient initially presented with the blood pressure 200/79, which improved with resolution of chest pain.? Patient has never had an event like this prior, no changes in medication, positive family history of heart disease. Patient's admitting vitals temp 98.7?, BP 132/60, HR 64, RR 12, O2 saturation 95% on room air.? HGB 11.9, HCT 35.8, CMP-WNL, troponin WNL, EKG sinus rhythm, chest x-ray no acute cardiopulmonary processes, chest CTA negative for dissection, or PE.? Patient admitted for chest pain rule. Discharge Providers Provider Date of admission: 12/19/21 02:07 Discharge Date: 12/20/21 Primary care physician: Jaiden Nieves MD Consults: 12/19/21 02:35 Consult to Dietitian, Adult Routine Comment: Reason For Exam: Overweight BMI 28.5, DM Discharge provider: Rodríguez Bridges MD Summary Hospital Course Discharge Diagnosis: 1. Chest pressure 2. Type 2 Diabetes 3. Hyperlipidemia 4. Overweight 5. Chronic low back pain Hospital Course: Ms. Bishop presented to the hospital with chest pressure. Her EKG showed no acute changes. Her troponin were negative. She was continued on aspirin and statin. Her stress test was low risk for ischemia. Her CTA did not show an acute abnormality. She was discharged home. Exam Vital Signs (past 8 hours): - 12/20/21 10:00 12/20/21 11:28 12/20/21 14:33 Temperature 97.3 F L Pulse Rate 62 Respiratory Rate 14 Blood Pressure 127/59 L Pulse Oximetry 98 98 98 12/20/21 14:39 Temperature 97.4 F L Pulse Rate 87 Respiratory Rate 16 Blood Pressure 144/73 H Pulse Oximetry 99 Oxygen Delivery Method Room Air Oxygen Flow Rate 0 Narrative Exam Narrative: GEN: no acute distress CV: regular rate and rhythm, no murmurs PULM: clear bilaterally, no wheezes, rhonchi, rales ABD: soft, nontender, nondistended, no organomegaly Objective Labs Result Diagrams: 12/18/21 23:52 12/18/21 23:52 PFS Medical History (Updated 12/19/21 @ 05:42 by DARIUSZ Da Silva-) Essential hypertension Hyperlipidemia associated with type 2 diabetes mellitus Non-insulin dependent type 2 diabetes mellitus Osteoporosis Patient denies medical problems Surgical History (Updated 12/19/21 @ 05:42 by DARIUSZ Da Silva-GINA) History of ankle surgery History of cholecystectomy History of gastric bypass Family History Mother Heart disease Diabetes mellitus Father Heart disease Cancer Social History household members: spouse and family Smoking Status: Never smoker Discharge Plan Discharge Plan Patient Disposition: Home Provider Discharge Comment: Ms. Bishop was admitted to the hospital with chest pressure. It improved. She had no evidence of her heart attack. Her stress test showed no abnormalities. Discharge orders & Medications Prescriptions: Continued alendronate 70 mg tablet 70 mg PO QWEEK Qty: 12 3RF Label Comments: Takes on saturdays aspirin 81 mg tablet,delayed release (DR/EC) 81 mg PO DAILY Qty: 90 3RF (DME) free style lancets See Rx Instructions .Route .MEDSUPPLY Qty: 300 3RF Rx Instructions: check blood sugar twice a day (DME) free style test strips See Rx Instructions .Route .MEDSUPPLY Qty: 300 3RF Rx Instructions: check blood sugar twice a day lisinopril 10 mg tablet 10 mg PO DAILY Qty: 90 3RF simvastatin 10 mg tablet 10 mg PO BEDTIME Qty: 90 3RF metformin 500 mg tablet 1,000 mg PO BID Qty: 240 0RF methocarbamol 500 mg Tablet 1,000 mg PO Q8H PRN (Reason: muscle spasms) 0RF Follow up/Referrals: Jaiden Nieves MD [Primary Care Provider] - Discharge Health Status Multidrug resistant organism: No MDRO Diet/Activity/Treatments Diet: Carb-consistent/Diabetic Visit Report/Discharge Packet Instructions: DI for Chest Pain Discharge Data Primary Care Provider: Jaiden Nieves Attending Provider: Elle Robles VTE Deep Vein Thrombosis/Pulmonary Embolism Present on Admission: No
--- NOTE | 2021-12-20 17:19 | PC.NURSE ---
Pt is dressed and ready for discharge home with Spouse. IV has been removed. Went over d/c instructions with Pt -discussed d/c meds, time of last dose, reviewed stroke education, and follow up. Pt denies further questions and was taken out via w/c by ADVERTISING DESIGNER to pov with Spouse and all belongings.
--- NOTE | 2021-12-20 17:59 | DI.NM.S_ITS ---
DATE OF SERVICE: 12/20/2021 PROCEDURE: Exercise perfusion study. INDICATION: Chest pain. RADIOPHARMACEUTICAL: 26.5 millicurie technetium-99m Myoview IV was injected at stress and 12.5 millicurie technetium-99m Myoview IV was injected at rest. CARDIAC STRESS: The patient underwent exercise perfusion study under the supervision of an attending staff. The patient walked on Castillo protocol for 5 minutes 47 seconds, achieved 103 percent of target heart rate and normal blood pressure response. Baseline blood pressure 140/78. Peak blood pressure 170/90 mmHg. Achieved 103 percent of target heart rate. 7 METs of workload and functional aerobic impairment 0 percent. No chest pain or anginal symptoms. The patient felt fatigue. Baseline rhythm was sinus. During stress, some nonspecific ST-T changes and, in recovery, the patient had some isolated PVCs without any ventricular tachycardia. RAW DATA: Breast shadow was seen. GATED STUDY: Stress LV ejection fraction 88 percent without any obvious wall motion abnormalities. Resting end-diastolic volume 78 mL, which is within normal limits. TID ratio 1.00, which is within normal limits. Lung/heart ratio 0.33, which is within normal limits. MYOCARDIAL PERFUSION SCAN: The stress supine and resting supine images revealed minimally decreased perfusion of anteroapex, which got resolved during stress prone images, suggestive of breast tissue attenuation artifact. CONCLUSION: I will call this study a normal myocardial perfusion study with evidence of breast tissue attenuation artifact, which got resolved during stress prone images. Fair exercise tolerance. Normal hemodynamic response. No convincing ischemic changes. Some isolated premature ventricular contractions in recovery. No anginal symptoms. Preserved left ventricular function. Overall low-risk myocardial perfusion scan. Mery Bishop - ILIA/marie/jyoti doc#: [id number]/job#: [id number] dd: 12/20/2021 16:39:00 dt: 12/20/2021 17:47:00 DICTATING MD/COPIES TO: Lidia Valdez MD COPIES MNE: SHIRLEY;
== END 2021-12-20 17:29 | disposition home or self-care (01) ==
LOC: ED 12-19 02:08 → AC 12-19 02:08
PROVIDERS: Admitting Provider Nurse Practitioner Family; Emergency Provider Emergency Medicine; PCP Student in an Organized Health Care Education/Training Program; Visit Provider Nurse Practitioner Family
DX: R07.9 Chest pain, unspecified (principal); I10 Essential (primary) hypertension; E11.9 Type 2 diabetes mellitus without complications; Z79.84 Long term (current) use of oral hypoglycemic drugs; E78.49 Other hyperlipidemia; E66.3 Overweight; Z68.28 Body mass index [BMI] 28.0-28.9, adult; M54.50 Low back pain, unspecified; G89.29 Other chronic pain; Z20.822 Contact with and (suspected) exposure to COVID-19
CPT/HCPCS: 36415; 71045; 71275; 78452; 80053; 80061; 82550; 82553; 82962; 83036; 83690; 83735; 83880; 84439; 84443; 84484; 85025; 87635; 93005; 93017; 94760; 96360; 96372; 99284; C9803; G0378; A9502; J1650; J1815; Q9967

== ENCOUNTER → 2022-01-24 10:30 | Outpatient (CLI) | payer MEDICARE, OTHER, SELFPAY ==
[2021-12-19 08:33] VITALS: BMI 28.5
== END ==
PROVIDERS: PCP Student in an Organized Health Care Education/Training Program; Referring Provider Student in an Organized Health Care Education/Training Program; Visit Provider Student in an Organized Health Care Education/Training Program
DX: M85.851 Other specified disorders of bone density and structure, right thigh (principal); Z78.0 Asymptomatic menopausal state; E11.9 Type 2 diabetes mellitus without complications
CPT/HCPCS: 77080

== ENCOUNTER → 2022-02-11 09:44 | Outpatient (CLI) | payer MEDICARE, OTHER, SELFPAY ==
[2021-12-19 08:33] VITALS: BMI 28.5
[2022-02-11 12:15] LABS: TSH w/ Reflex to FT4 3.17 uIU/mL (0.47-4.68)
[2022-02-11 15:21] LABS: Creatinine Urine Random 50.2 mg/dL
[2022-02-11 15:32] LABS: Microalbumin Urine Random < 0.6 mg/dL (0-1.6)
[2022-02-11 19:06] LABS: Hemoglobin A1C% w Est Avg Glu 6.4 % (4.0-6.0)
== END ==
PROVIDERS: PCP Student in an Organized Health Care Education/Training Program; Referring Provider Student in an Organized Health Care Education/Training Program; Visit Provider Student in an Organized Health Care Education/Training Program
DX: E11.9 Type 2 diabetes mellitus without complications (principal); I10 Essential (primary) hypertension; E03.9 Hypothyroidism, unspecified
CPT/HCPCS: 36415; 82043; 82570; 83036; 84443

== ENCOUNTER → 2022-04-21 13:20 | Outpatient (CLI) | payer MEDICARE, OTHER, SELFPAY ==
[2021-12-19 08:33] VITALS: BMI 28.5
== END ==
PROVIDERS: PCP Student in an Organized Health Care Education/Training Program; Visit Provider Physician Assistant
DX: R30.0 Dysuria (principal)
CPT/HCPCS: 87077; 87086; 87186

== ENCOUNTER → 2022-05-19 09:28 | Outpatient (CLI) | payer MEDICARE, OTHER, SELFPAY ==
[2021-12-19 08:33] VITALS: BMI 28.5
== END ==
PROVIDERS: PCP Student in an Organized Health Care Education/Training Program; Visit Provider Physician Assistant
DX: R30.0 Dysuria (principal)
CPT/HCPCS: 87077; 87086; 87186

== ENCOUNTER → 2022-06-06 10:25 | Outpatient (CLI) | payer MEDICARE, OTHER, SELFPAY ==
[2021-12-19 08:33] VITALS: BMI 28.5
== END ==
PROVIDERS: PCP Student in an Organized Health Care Education/Training Program; Visit Provider Physician Assistant
DX: R30.0 Dysuria (principal)
CPT/HCPCS: 87077; 87086; 87186

== ENCOUNTER → 2022-06-19 12:56 | Outpatient (CLI) | payer MEDICARE, OTHER, SELFPAY ==
[2022-06-18 09:18] VITALS: BMI 28.5
[2022-06-19 13:41] LABS: BUN Creatinine Ratio 35.8 (6-22); Blood Urea Nitrogen 29 mg/dL (7-17); Carbon Dioxide 28 mmol/L (22-32); Chloride 100 mmol/L (98-107); Estimated Glomerular Filt Rate > 60 mL/min (>60); Glucose 171 mg/dL (80-110); HEMOLYSIS < 15 (0-50); Potassium 4.3 mmol/L (3.4-5.1); Sodium 135 mmol/L (137-145)
== END ==
PROVIDERS: PCP Student in an Organized Health Care Education/Training Program; Referring Provider Specialist; Visit Provider Specialist
DX: Z01.812 Encounter for preprocedural laboratory examination (principal)
CPT/HCPCS: 36415; 80048

== ENCOUNTER → 2022-06-26 11:09 | Outpatient (CLI) | payer MEDICARE, OTHER, SELFPAY ==
[2022-06-18 09:18] VITALS: BMI 28.5
--- NOTE | 2022-06-26 | DI.CT.S_ITS ---
PROCEDURE: CT ABDOMEN PELVIS WO/W CON INDICATIONS: Urinary tract infection, site not specified TECHNIQUE: 5 mm thick sections acquired from the diaphragms to the iliac crests before contrast administration. After the administration of intravenous contrast, 5 mm thick sections acquired from the diaphragms to the symphysis. 5 mm thick coronal and sagittal reformats were acquired. For radiation dose reduction, the following was used: automated exposure control, adjustment of mA and/or kV according to patient size. COMPARISON: None. FINDINGS: Image quality: Excellent. ABDOMEN: Lung bases: Tiny right middle lobe nodule (2/31). Scattered scarring/atelectasis. Eder-en-Y changes, small hiatal hernia. Coronary artery calcifications. Solid organs: Liver is unremarkable. Cholecystectomy. Biliary tree, spleen, adrenals are unremarkable. 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 No hydronephrosis. No renal calculi. Bowel and peritoneum: Eder-en-Y anatomy. No bowel obstruction. Colonic diverticula. Nodes and vessels: Mild atherosclerotic calcifications. No aneurysm. No adenopathy. Miscellaneous: Breast implants. Anterior abdominal wall postsurgical changes. PELVIS: Genitourinary: Bladder wall thickness is normal. No bladder stone. Miscellaneous: No inguinal hernias or adenopathy. Bones: No suspicious or acute osseous finding. IMPRESSION: No hydronephrosis or renal or bladder calculi. 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 Otherwise, no measurable mass in the system. Lower tract disease could be better evaluated with cystoscopy if indicated. Tiny right middle lobe pulmonary nodule could be followed with optional chest CT in 1 year for high risk patients. Dictated by: Dano Duffy M.D. on 06/26/2022 at 12:00 Approved by: Dano Duffy M.D. on 06/26/2022 at 12:08
== END ==
PROVIDERS: PCP Student in an Organized Health Care Education/Training Program; Referring Provider Specialist; Visit Provider Specialist
DX: D17.71 Benign lipomatous neoplasm of kidney (principal); N39.0 Urinary tract infection, site not specified; K44.9 Diaphragmatic hernia without obstruction or gangrene; I25.10 Atherosclerotic heart disease of native coronary artery without angina pectoris; K57.90 Diverticulosis of intestine, part unspecified, without perforation or abscess without bleeding; Z98.84 Bariatric surgery status
CPT/HCPCS: 74178; Q9967

== ENCOUNTER 2022-06-29 12:06 | Emergency (ER) | payer MEDICARE, OTHER, SELFPAY ==
[2022-06-18 09:18] VITALS: BMI 28.5
[2022-06-29] VITALS (19 sets, daily range): BP systolic 136–185; BP diastolic 59–79; PULSE 54–73; RESP 11–18; TEMP 36.8; O2SAT 96–100; BMI 28.8
--- NOTE | 2022-06-29 12:23 | DI.CT.S_ITS ---
PROCEDURE: CT STROKE INDICATIONS: Positive BE-FAST, Stroke symptoms TECHNIQUE: Noncontrast 4.5 mm thick angled axial sections acquired from the foramen magnum to the vertex, with coronal reformats. For radiation dose reduction, the following was used: automated exposure control, adjustment of mA and/or kV according to patient size. COMPARISON: None. FINDINGS: Image quality: Excellent. CSF spaces: Basal cisterns are patent. No extra-axial fluid collections. The ventricles are symmetric in size and shape. Brain: No intracranial bleeds or masses. There is cerebral volume loss for age, with resultant ventricular and sulcal prominence. There are periventricular and deep white matter chronic small vessel ischemic changes. There is intracranial internal carotid artery atherosclerosis. Vargas-white matter differentiation is maintained. Skull and face: Calvarium and visualized facial bones appear intact, without suspicious lesions. Sinuses: Visualized sinuses and mastoids are clear. IMPRESSION: Findings consistent with mild microvascular ischemic changes without evidence of an acute transcortical infarction. No acute intracranial hemorrhage. Findings discussed with ordering provider Dr. Kayley Mclaughlin over the telephone by Dr. Jake Crane at approximately 12:15 p.m. [place] Standard time on 06/29/2022. This study fulfills neurological imaging criteria for inclusion or exclusion of acute stroke therapies based on available published neurological guidelines. Dictated by: Jake Crane D.O. on 06/29/2022 at 12:11 Approved by: Jake Crane D.O. on 06/29/2022 at 12:16
--- NOTE | 2022-06-29 12:23 | DI.RAD.S_ITS ---
PROCEDURE: XR CHEST 1V INDICATIONS: Possible stroke TECHNIQUE: One view of the chest was acquired. COMPARISON: [facility], CR, XR CHEST 1V, 12/18/2021, 23:44. FINDINGS: Surgical changes and devices: None. Lungs and pleura: Lungs are clear. No pleural effusions or pneumothorax. Mediastinum: Mediastinal contours appear normal. Heart size is normal. Bones and chest wall: No suspicious bony lesions. Degenerative changes of the spine with degenerative changes of the costochondral junction worse on the right at the 1st rib. Overlying soft tissues appear unremarkable. IMPRESSION: No evidence of an acute cardiopulmonary abnormality. Dictated by: Jake Crane D.O. on 06/29/2022 at 12:10 Approved by: Jake Crane D.O. on 06/29/2022 at 12:11
[2022-06-29 12:49] LABS: Add Manual Diff / Slide Review NO; Basophils Absolute Auto 100 /uL (0-100); Basophils Percent Auto 1.1 % (0-2); Eosinophils Absolute Auto 200 /uL (0-450); Eosinophils Percent Auto 2.3 % (2-4); Hematocrit 38.4 % (36-46); Hemoglobin 12.7 g/dL (12.0-16.0); Lymphocytes Absolute Auto 2100 /uL (1100-4500); Lymphocytes Percent Auto 22.9 % (25-40); Mean Corpuscular HGB Conc 33.1 % (30-36); Mean Corpuscular Hemoglobin 29.9 PG (26-34); Mean Corpuscular Volume 90.3 fL (80-100); Monocytes Absolute Auto 600 /uL (0-900); Monocytes Percent Auto 6.2 % (3-14); Neutrophils Absolute Auto 6200 /uL (1500-7000); Neutrophils Percent Auto 67.5 % (50-75); Platelet Count 311 X10^3/uL (150-400); Red Blood Cell Count 4.25 X10^6/uL (4.0-5.2); Red Cell Distribution Width 13.3 % (11.6-14.8); White Blood Cell Count 9.1 X10^3/uL (4.5-11.0)
[2022-06-29 12:56] LABS: Prothrombin Time 11.1 SECONDS (10.1-12.7)
[2022-06-29 12:59] LABS: PTT Partial Thromboplastin Tim 30 SECONDS (26.4-36.2)
[2022-06-29 13:02] LABS: Alanine Aminotransferase 27 IU/L (<35); Albumin 4.7 g/dL (3.5-5.0); Albumin Globulin Ratio 1.2 (1.0-2.8); Alkaline Phosphatase 68 U/L (38-126); Aspartate Aminotransferase 41 IU/L (14-36); BUN Creatinine Ratio 22.1 (6-22); Bilirubin Total 0.7 mg/dL (0.2-1.3); Blood Urea Nitrogen 19 mg/dL (7-17); Carbon Dioxide 27 mmol/L (22-32); Chloride 104 mmol/L (98-107); Creatine Kinase 116 U/L (30-135); Estimated Glomerular Filt Rate > 60 mL/min (>60); Globulin 3.8 g/dL (1.7-4.1); Glucose 128 mg/dL (80-110); Magnesium 1.9 mg/dL (1.6-2.3); Sodium 140 mmol/L (137-145); Total Protein 8.5 g/dL (6.3-8.2)
--- NOTE | 2022-06-29 13:05 | ED.NEUROSD ---
HPI - Neuro Symptoms/Deficit General Chief Complaint: Neuro Symptoms/Deficit Stated Complaint: Confussion w/ Fall Time Seen by Provider: 06/29/22 12:27 Source: patient Mode of arrival: Ambulatory History of Present Illness HPI Narrative: Patient is a 72-year-old female with history of TIA, frequent UTI, presents today with confusion. She says she was in the grocery store she forgot she was going to the meat department she looks around she was very confused she could not remember very much she called her . Has been in the room says that she was not speaking gibberish EKG he could understand her words but she was obviously upset. She was able to get through check out and drive home at which point they came here for further evaluation. She had no numbness tingling or weakness no facial droop no visual changes symptoms lasted for roughly for 3 minutes and have: Please see resolved. She also states that she did not eat breakfast this morning, which is not normal for her. She also says that she has had frequent UTIs she was just on antibiotics but thinks that her UTI is back since yesterday. No fever chills no abdominal pain. It does appear that she has had frequent UTIs she was last seen by her primary on 06/13/2022. According to urine cultures she had a positive urinalysis April 21 May 19 and June 06 all have grown E coli and are thorpe sensitive. Related Data Home Medications Medication Instructions Recorded Confirmed methocarbamol 500 mg tablet 1,000 mg PO Q8H PRN muscle spasms 12/20/21 06/06/22 Previous Rx's Medication Instructions Recorded aspirin 81 mg tablet,delayed 81 mg PO DAILY #90 tabs 06/12/21 release free style lancets ##300 06/12/21 free style test strips ##300 06/12/21 lisinopril 10 mg tablet 10 mg PO DAILY #90 tabs 06/12/21 simvastatin 10 mg tablet 10 mg PO BEDTIME #90 tabs 06/12/21 metformin 500 mg tablet 1,000 mg PO BID #360 tabs 01/25/22 denosumab 60 mg/mL subcutaneous 60 mg SUBCUT [id number] #1 mL 02/22/22 syringe (Prolia) estradiol 0.01% (0.1 mg/gram) 1 g vaginal 2XW #42.5 grams 06/17/22 vaginal cream levofloxacin 750 mg tablet 750 mg PO DAILY 7 days #7 tabs 06/29/22 levofloxacin 750 mg tablet 750 mg PO DAILY 7 days #7 tabs 06/29/22 Allergies Allergy/AdvReac Type Severity Reaction Status Date / Time Sulfa (Sulfonamide AdvReac Severe Hives Verified 06/29/22 12:24 Antibiotics) Review of Systems Review of Systems Narrative: GENERAL: Denies chills, fatigue, malaise, fever, sweats, travel HEENT: Denies sinus pain, ear pain, sore throat, difficulty swallowing, neck pain RESPIRATORY: Denies dyspnea, cough, wheezing, hemoptysis, sputum. CARDIOVASCULAR: Denies chest pain, palpitations, orthopnea, edema GASTROINTESTINAL: Denies nausea, vomiting, abdominal pain, diarrhea, constipation, melena. : See HPI MUSCULOSKELETAL: Denies weakness, joint pain, or bony pain SKIN: No rash, no erythema, no pruritus NEUROLOGIC: See HPI PSYCHIATRIC: No concerning psychosocial issues. 12 point review of systems is negative except for those stated above and HPI Patient History Medical History Hyperlipidemia associated with type 2 diabetes mellitus Osteoporosis Surgical History History of ankle surgery History of cholecystectomy History of gastric bypass Family History Mother Heart disease Diabetes mellitus Father Heart disease Cancer Social History household members: spouse and family Smoking Status: Never smoker Smoking Status: Never smoker alcohol intake frequency: 0-2 drinks per day Substance Use Type: does not use Exam Initial Vital Signs Initial Vital Signs: Vital Signs Temperature 98.2 F 06/29/22 12:18 Pulse Rate 72 06/29/22 12:18 Respiratory Rate 15 06/29/22 12:18 Blood Pressure 185/79 H 06/29/22 12:18 Pulse Oximetry 100 06/29/22 12:18 Oxygen Delivery Method 06/29/22 12:18 GENERAL: Alert pleasant 72 year and in no acute distress. HEENT: Head atraumatic,EOMI, pupils reactive, face symmetric, moist mucous membranes CARDIOVASCULAR: Regular rate and rhythm without murmurs, rubs or gallops. RESPIRATORY: Breath sounds equal bilaterally, no wheezes rales or rhonchi. ABDOMEN: Soft, nontender. Normoactive bowel sounds all 4 quadrants. No guarding or rebound. EXTREMITIES: Normal range of motion, no clubbing or edema. Neurovascularly intact NEUROLOGICAL: Alert and oriented x4.Normal gait and speech. Cranial nerves II through XII grossly intact. Good [id number], good [id number], strength equal bilaterally, no dysarthria or aphasia, sensation in tact to soft touch bilaterally, no visual changes, no facial droop SKIN: Warm, dry, no laceration, no petechiae, no rashes or lesions. Scores NIH Stroke Scale Level of Conciousness: Alert, keenly responsive Ask month/age: Answers both questions correctly. Open/close eyes, close hand: Performs both tasks correctly Best gaze horizontal: Normal Visual stoner: No visual loss Facial palsy: Normal symetrical movement Left arm drift: No drift for full 10 sec Right arm drift: No drift for full 10 sec Left leg drift: No drift for full 5 sec Right leg drift: No drift for full 5 sec Limb ataxia: Absent Sensory on face/arms/legs: Normal, no sensory loss Best language: No aphasia, normal Dysarthria: Normal Extinction or inattention: No abnormality Total NIH Stroke scale score: 0 Course Orders Ordered: ED Orders 06/29/22 12:23 CT head/brain wo con Stat XR chest 1V Stat 06/29/22 12:30 Complete Blood Count AUTO DIFF Stat Comprehensive Metabolic Panel Stat Lactate (Lactic Acid) Stat Magnesium Stat Partial Thromboplastin Time Stat Procalcitonin Stat Prothrombin Time INR Stat Troponin & CK Cardiac Panel Stat 06/29/22 12:59 Urine Culture Stat Urine Drug Screen, Rapid Stat Urine Microscopic Stat 06/29/22 14:15 Blood Culture Stat 06/29/22 15:00 EKG-12 Lead Stat Discontinued Medications Sodium Chloride (Normal Saline 0.9%) 1,000 mls @ 1,000 mls/hr IV BOLUS ONE Stop: 06/29/22 16:13 Last Infusion: 06/29/22 18:07 Dose: 0 mls/hr Documented By: LUIS DANIEL Admin: 06/29/22 15:35 Dose: 1,000 mls/hr Documented By: BETTY Levofloxacin (Levofloxacin 250 Mg Tablet) 750 mg PO NOW ONE Stop: 06/29/22 18:21 Vital Signs Vital signs: Vital Signs - 8 hr 06/29/22 12:18 06/29/22 12:18 06/29/22 12:20 Temperature 98.2 F Pulse Rate 72 73 67 Respiratory Rate 15 Blood Pressure 185/79 H Pulse Oximetry 100 100 100 Oxygen Delivery Method Room Air 06/29/22 12:20 06/29/22 12:30 06/29/22 12:31 Temperature Pulse Rate 63 Respiratory Rate Blood Pressure 185/79 H 152/67 H Pulse Oximetry 98 Oxygen Delivery Method 06/29/22 12:31 06/29/22 13:06 06/29/22 13:08 Temperature Pulse Rate 63 61 66 Respiratory Rate Blood Pressure Pulse Oximetry 98 98 98 Oxygen Delivery Method 06/29/22 13:08 06/29/22 13:30 06/29/22 13:30 Temperature Pulse Rate 55 L Respiratory Rate 12 Blood Pressure 142/65 H 149/66 H Pulse Oximetry 98 Oxygen Delivery Method 06/29/22 14:00 06/29/22 14:00 06/29/22 14:30 Temperature Pulse Rate 56 L Respiratory Rate 11 L Blood Pressure 136/65 142/64 H Pulse Oximetry 97 Oxygen Delivery Method 06/29/22 14:30 06/29/22 15:00 06/29/22 15:01 Temperature Pulse Rate 54 L 59 L Respiratory Rate 13 18 Blood Pressure 169/72 H Pulse Oximetry 99 96 Oxygen Delivery Method 06/29/22 15:01 06/29/22 15:30 06/29/22 15:31 Temperature Pulse Rate 60 57 L Respiratory Rate 18 Blood Pressure 141/65 H Pulse Oximetry 97 99 Oxygen Delivery Method Room Air 06/29/22 15:31 06/29/22 16:00 06/29/22 16:00 Temperature Pulse Rate 57 L 58 L Respiratory Rate 12 13 Blood Pressure 141/66 H Pulse Oximetry 98 98 Oxygen Delivery Method 06/29/22 16:30 06/29/22 16:30 06/29/22 17:00 Temperature Pulse Rate 58 L Respiratory Rate 14 Blood Pressure 147/66 H 143/65 H Pulse Oximetry 98 Oxygen Delivery Method 06/29/22 17:00 06/29/22 17:30 06/29/22 17:30 Temperature Pulse Rate 59 L 59 L Respiratory Rate 13 14 Blood Pressure 147/66 H Pulse Oximetry 98 98 Oxygen Delivery Method 06/29/22 18:00 06/29/22 18:00 Temperature Pulse Rate 57 L Respiratory Rate 15 Blood Pressure 143/65 H Pulse Oximetry 97 Oxygen Delivery Method MDM - Neuro Symptoms/Deficit Lab Data Result diagrams: 06/29/22 12:30 06/29/22 12:30 Labs: Lab Results 06/29/22 06/29/22 06/29/22 Range/Units 12:30 12:30 12:30 WBC 9.1 (4.5-11.0) X10^3/uL RBC 4.25 (4.0-5.2) X10^6/uL Hgb 12.7 (12.0-16.0) g/dL Hct 38.4 (36-46) % MCV 90.3 (80-100) fL MCH 29.9 (26-34) PG MCHC 33.1 (30-36) % RDW 13.3 (11.6-14.8) % Plt Count 311 (150-400) X10^3/uL Neut % (Auto) 67.5 (50-75) % Lymph % (Auto) 22.9 L (25-40) % [place] % (Auto) 6.2 (3-14) % Eos % (Auto) 2.3 (2-4) % Baso % (Auto) 1.1 (0-2) % Neut # (Auto) 6200 (8463-3360) /uL Lymph # (Auto) 2100 (0919-7488) /uL [place] # (Auto) 600 (0-900) /uL Eos # (Auto) 200 (0-450) /uL Baso # (Auto) 100 (0-100) /uL PT 11.1 (10.1-12.7) SECONDS INR 1.0 (0.9-1.3) APTT 30 (26.4-36.2) SECONDS Sodium 140 (137-145) mmol/L Potassium 5.0 (3.4-5.1) mmol/L Chloride 104 (98-107) mmol/L Carbon Dioxide 27 (22-32) mmol/L BUN 19 H (7-17) mg/dL Creatinine 0.86 (0.52-1.04) mg/dL Estimated GFR > 60 (>60) mL/min BUN/Creatinine Ratio 22.1 H (6-22) Glucose 128 H (80-110) mg/dL Lactate (0.7-2.1) mmol/L Calcium 10.0 (8.4-10.2) mg/dL Magnesium 1.9 (1.6-2.3) mg/dL Total Bilirubin 0.7 (0.2-1.3) mg/dL AST 41 H (14-36) IU/L ALT 27 (<35) IU/L Alkaline Phosphatase 68 (38-126) U/L Total Creatine Kinase 116 (30-135) U/L CK-MB (CK-2) 0.95 (<2.37) ng/mL CK-MB (CK-2) Rel Index 0.8 L (1.5-5.0) % Troponin I < 0.012 (0.01-0.034) ng/mL Total Protein 8.5 H (6.3-8.2) g/dL Albumin 4.7 (3.5-5.0) g/dL Globulin 3.8 (1.7-4.1) g/dL Albumin/Globulin Ratio 1.2 (1.0-2.8) Procalcitonin (<0.5) ng/mL Urine RBC (0-5/HPF) Urine WBC (0-5/HPF) Amorphous Sediment Urine Bacteria (None) Ur Culture Indicated? U Opiates 300ng/mL cut (Negative) Ur Oxycodone Screen (Negative) Urine Methadone Screen (Negative) Ur Barbiturates Screen (Negative) U Tricyclic Antidepress (Negative) Ur Phencyclidine Scrn (Negative) Ur Amphetamines Screen (Negative) U Methamphetamines Scrn (Negative) Ur MDMA Scrn (Ecstasy) (Negative) U Benzodiazepines Scrn (Negative) Urine Cocaine Screen (Negative) U Marijuana (THC) Screen (Negative) 06/29/22 06/29/22 06/29/22 Range/Units 12:30 12:30 12:59 WBC (4.5-11.0) X10^3/uL RBC (4.0-5.2) X10^6/uL Hgb (12.0-16.0) g/dL Hct (36-46) % MCV (80-100) fL MCH (26-34) PG MCHC (30-36) % RDW (11.6-14.8) % Plt Count (150-400) X10^3/uL Neut % (Auto) (50-75) % Lymph % (Auto) (25-40) % [place] % (Auto) (3-14) % Eos % (Auto) (2-4) % Baso % (Auto) (0-2) % Neut # (Auto) (9885-5229) /uL Lymph # (Auto) (9473-3154) /uL [place] # (Auto) (0-900) /uL Eos # (Auto) (0-450) /uL Baso # (Auto) (0-100) /uL PT (10.1-12.7) SECONDS INR (0.9-1.3) APTT (26.4-36.2) SECONDS Sodium (137-145) mmol/L Potassium (3.4-5.1) mmol/L Chloride (98-107) mmol/L Carbon Dioxide (22-32) mmol/L BUN (7-17) mg/dL Creatinine (0.52-1.04) mg/dL Estimated GFR (>60) mL/min BUN/Creatinine Ratio (6-22) Glucose (80-110) mg/dL Lactate 3.3 H (0.7-2.1) mmol/L Calcium (8.4-10.2) mg/dL Magnesium (1.6-2.3) mg/dL Total Bilirubin (0.2-1.3) mg/dL AST (14-36) IU/L ALT (<35) IU/L Alkaline Phosphatase (38-126) U/L Total Creatine Kinase (30-135) U/L CK-MB (CK-2) (<2.37) ng/mL CK-MB (CK-2) Rel Index (1.5-5.0) % Troponin I (0.01-0.034) ng/mL Total Protein (6.3-8.2) g/dL Albumin (3.5-5.0) g/dL Globulin (1.7-4.1) g/dL Albumin/Globulin Ratio (1.0-2.8) Procalcitonin 0.03 (<0.5) ng/mL Urine RBC 1-5/hpf (0-5/HPF) Urine WBC 5-10/hpf H (0-5/HPF) Amorphous Sediment 1+ Urine Bacteria Moderate (10-30) H (None) Ur Culture Indicated? Specimen cultured U Opiates 300ng/mL cut (Negative) Ur Oxycodone Screen (Negative) Urine Methadone Screen (Negative) Ur Barbiturates Screen (Negative) U Tricyclic Antidepress (Negative) Ur Phencyclidine Scrn (Negative) Ur Amphetamines Screen (Negative) U Methamphetamines Scrn (Negative) Ur MDMA Scrn (Ecstasy) (Negative) U Benzodiazepines Scrn (Negative) Urine Cocaine Screen (Negative) U Marijuana (THC) Screen (Negative) 06/29/22 06/29/22 Range/Units 12:59 17:21 WBC (4.5-11.0) X10^3/uL RBC (4.0-5.2) X10^6/uL Hgb (12.0-16.0) g/dL Hct (36-46) % MCV (80-100) fL MCH (26-34) PG MCHC (30-36) % RDW (11.6-14.8) % Plt Count (150-400) X10^3/uL Neut % (Auto) (50-75) % Lymph % (Auto) (25-40) % [place] % (Auto) (3-14) % Eos % (Auto) (2-4) % Baso % (Auto) (0-2) % Neut # (Auto) (4390-3523) /uL Lymph # (Auto) (5124-9942) /uL [place] # (Auto) (0-900) /uL Eos # (Auto) (0-450) /uL Baso # (Auto) (0-100) /uL PT (10.1-12.7) SECONDS INR (0.9-1.3) APTT (26.4-36.2) SECONDS Sodium (137-145) mmol/L Potassium (3.4-5.1) mmol/L Chloride (98-107) mmol/L Carbon Dioxide (22-32) mmol/L BUN (7-17) mg/dL Creatinine (0.52-1.04) mg/dL Estimated GFR (>60) mL/min BUN/Creatinine Ratio (6-22) Glucose (80-110) mg/dL Lactate 1.4 (0.7-2.1) mmol/L Calcium (8.4-10.2) mg/dL Magnesium (1.6-2.3) mg/dL Total Bilirubin (0.2-1.3) mg/dL AST (14-36) IU/L ALT (<35) IU/L Alkaline Phosphatase (38-126) U/L Total Creatine Kinase (30-135) U/L CK-MB (CK-2) (<2.37) ng/mL CK-MB (CK-2) Rel Index (1.5-5.0) % Troponin I (0.01-0.034) ng/mL Total Protein (6.3-8.2) g/dL Albumin (3.5-5.0) g/dL Globulin (1.7-4.1) g/dL Albumin/Globulin Ratio (1.0-2.8) Procalcitonin (<0.5) ng/mL Urine RBC (0-5/HPF) Urine WBC (0-5/HPF) Amorphous Sediment Urine Bacteria (None) Ur Culture Indicated? U Opiates 300ng/mL cut Negative (Negative) Ur Oxycodone Screen Negative (Negative) Urine Methadone Screen Negative (Negative) Ur Barbiturates Screen Negative (Negative) U Tricyclic Antidepress Negative (Negative) Ur Phencyclidine Scrn Negative (Negative) Ur Amphetamines Screen Negative (Negative) U Methamphetamines Scrn Negative (Negative) Ur MDMA Scrn (Ecstasy) Negative (Negative) U Benzodiazepines Scrn Negative (Negative) Urine Cocaine Screen Negative (Negative) U Marijuana (THC) Screen Negative (Negative) Point of Care Testing Glucose POC 121 Urine Dip Bedside Urine Glucose Negative Bedside Urine Bilirubin - Negative Bedside Urine Ketone - Negative Urine Specific [place] 1.015 Bedside Urine Occult Blood +/- Bedside Urine pH 5.5 Bedside Urine Protein - Negative Bedside Urine Urobilinogen - Negative Bedside Urine Nitrite - Negative Bedside Urine Leukocytes ++ [address] scan - head: Radiologist's Impression: ROYER Sam[place] [id number] CT Scan Report Signed Patient: Mery Bishop MR#: [id number] : 1950 Acct:[id number] Age/Sex: 72 / F Date of Service: 06/29/22 Loc: ED Accession Number: [id number] ?? Procedure: CT head/brain wo con Ordering Provider: Kayley Mclaughlin D.O. PROCEDURE:? CT STROKE ? INDICATIONS:? Positive BE-FAST, Stroke symptoms ? TECHNIQUE:? Noncontrast 4.5 mm thick angled axial sections acquired from the foramen magnum to the vertex, with coronal reformats.? For radiation dose reduction, the following was used:? automated exposure control, adjustment of mA and/or kV according to patient size.? ? COMPARISON:? None. ? FINDINGS:? Image quality:? Excellent.? ? CSF spaces:? Basal cisterns are patent.? No extra-axial fluid collections.? The ventricles are symmetric in size and shape.? ? Brain:? No intracranial bleeds or masses.? There is cerebral volume loss for age, with resultant ventricular and sulcal prominence.? There are periventricular and deep white matter chronic small vessel ischemic changes.? There is intracranial internal carotid artery atherosclerosis.? Vargas-white matter differentiation is maintained. ? Skull and face:? Calvarium and visualized facial bones appear intact, without suspicious lesions.? ? Sinuses:? Visualized sinuses and mastoids are clear.? ? IMPRESSION:? ? Findings consistent with mild microvascular ischemic changes without evidence of an acute transcortical infarction. ? No acute intracranial hemorrhage. ? Findings discussed with ordering provider Dr. Kayley Mclaughlin over the telephone by Dr. Jake Crane at approximately 12:15 p.m. [place] Standard time on 06/29/2022. ? This study fulfills neurological imaging criteria for inclusion or exclusion of acute stroke therapies based on available published neurological guidelines.? ? ? Dictated by: Jake Crane D.O. on 06/29/2022 at 12:11 ? ? Approved by: Jake Crane D.O. on 06/29/2022 at 12:16 ? ECG Data Interpretation: Normal sinus rhythm rate 63 AK interval 174 QRS [address] changes no T-wave inversion MDM Narrative Medical decision making narrative: Patient had episode of confusion today while in the grocery store. She had not eaten breakfast which is unusual for her she again appears to have a UTI but is not septic. She has had multiple UTIs recently. she has been on cephalosporins she said that her symptoms improved after the 10 day course of cefpodoxime. I will actually start her on some Levaquin to see if that helps are for about 7 days. She have an elevated lactate of 3.3. Which does improve after 1 L of fluid. Negative procalcitonin no leukocytosis she is afebrile. Not sure hot and her for this she does not appear septic she has no pain. Not convinced that her confusion today of not remembering where the meat department is at the grocery store for a few minutes is related to TIA or CVA. She certainly has no large vessel occlusion signs no need for CT angio at this time. She is an appointment with Urology next week in regards to her frequent UTIs. I encouraged her to keep this appointment follow-up Discharge Plan Departure Patient Disposition: Home Clinical Impression: Acute UTI Instructions: DI for Urinary Tract Infection (UTI) Activity Restrictions/Additional Instructions: *You have been diagnosed with UTI *What to do: Please see urology. You are having many it frequent bladder infections. In may be contributing to your episode toda. *Continue to take medications as directed Levaquin 750 mg once daily for 7 days--> [facility] *Follow up with your primary care provider in 2-3 days or call [phone] *Return to ER if you should have increasing confusion weakness numbness tingling fever or any new, worsening or concerning symptoms Prescriptions: New levofloxacin 750 mg tablet 750 mg PO DAILY 7 Days Qty: 7 0RF levofloxacin 750 mg tablet 750 mg PO DAILY 7 Days Qty: 7 0RF No Action aspirin 81 mg tablet,delayed release (DR/EC) 81 mg PO DAILY Qty: 90 3RF (DME) free style lancets See Rx Instructions .Route .MEDSUPPLY Qty: 300 3RF Rx Instructions: check blood sugar twice a day (DME) free style test strips See Rx Instructions .Route .MEDSUPPLY Qty: 300 3RF Rx Instructions: check blood sugar twice a day lisinopril 10 mg tablet 10 mg PO DAILY Qty: 90 3RF simvastatin 10 mg tablet 10 mg PO BEDTIME Qty: 90 3RF metformin 500 mg tablet 1,000 mg PO BID Qty: 360 1RF Prolia 60 mg/mL syringe 60 mg SUBCUT [id number] Qty: 1 1RF estradiol 0.01 % (0.1 mg/gram) cream 1 g vaginal 2XW Qty: 42.5 0RF methocarbamol 500 mg Tablet 1,000 mg PO Q8H PRN (Reason: muscle spasms) Referrals: Jaiden Nieves MD [Primary Care Provider] -
[2022-06-29 13:06] LABS: HEMOLYSIS 92 (0-50)
[2022-06-29 13:09] LABS: Ur Creatinine Normal (Normal); Ur Specific Gravity 1.025 (Normal); Urine Tetrahydrocannabinol Negative (Negative); Urine pH 4 (Normal)
[2022-06-29 13:10] LABS: UR Morphine/Opiate cutoff 300 Negative (Negative); Urine Amphetamines Negative (Negative); Urine Barbiturates Negative (Negative); Urine Benzodiazepines Negative (Negative); Urine Cocaine Negative (Negative); Urine MDMA Negative (Negative); Urine Methadone Negative (Negative); Urine Methamphetamines Negative (Negative); Urine Oxycodone Negative (Negative); Urine Phencyclidine Negative (Negative); Urine Tricyclic Antidepressant Negative (Negative)
[2022-06-29 13:13] LABS: Troponin I < 0.012 ng/mL (0.01-0.034)
[2022-06-29 13:17] LABS: CKMB % Relative Index 0.8 % (1.5-5.0); Creatine Kinase MB 0.95 ng/mL (<2.37)
[2022-06-29 13:24] LABS: RBC Urine 1-5/HPF (0-5/HPF); WBC Urine 5-10/HPF (0-5/HPF)
[2022-06-29 13:25] LABS: Amorphous Sediment Urine 1+; Bacteria Urine Moderate (10-30); Culture Indicated Urine Specimen Cultured
[2022-06-29 14:00] LABS: Lactate (Lactic Acid) 3.3 mmol/L (0.7-2.1)
[2022-06-29 14:17] LABS: Procalcitonin 0.03 ng/mL (<0.5)
[2022-06-29] MEDS: SODIUM CHLORIDE 0.9% 1,000 ML 1000 ML IV (15:35)
[2022-06-29 15:46] LABS: Reflexed Lactate in 2 Hours Y
[2022-06-29 17:53] LABS: Lactate 2HR (Lactic Acid Rflx) 1.4 mmol/L (0.7-2.1)
[2022-06-29] MEDS: levoFLOXacin 250 MG TABLET 750 MG PO (18:37)
== END 2022-06-29 18:42 | disposition home or self-care (01) ==
PROVIDERS: Emergency Provider Emergency Medicine; PCP Student in an Organized Health Care Education/Training Program
DX: N39.0 Urinary tract infection, site not specified (principal); R41.0 Disorientation, unspecified
CPT/HCPCS: 36415; 70450; 71045; 80053; 80305; 81003; 81015; 82550; 82553; 82962; 83605; 83735; 84145; 84484; 85025; 85610; 85730; 87040; 87077; 87086; 87186; 93005; 96360; 96361; 99284; 99285

== ENCOUNTER → 2022-07-01 16:46 | Outpatient (CLI) | payer MEDICARE, OTHER, SELFPAY ==
[2022-06-18 09:18] VITALS: BMI 28.5
== END ==
PROVIDERS: PCP Student in an Organized Health Care Education/Training Program; Visit Provider Urology
DX: N39.0 Urinary tract infection, site not specified (principal); D17.71 Benign lipomatous neoplasm of kidney; Z87.442 Personal history of urinary calculi
CPT/HCPCS: 81002; 87086; 99214

== ENCOUNTER → 2022-09-21 10:20 | Outpatient (CLI) | payer MEDICARE, OTHER, SELFPAY ==
[2022-06-18 09:18] VITALS: BMI 28.5
--- NOTE | 2022-09-21 | DI.MG.S_ITS ---
BILATERAL DIGITAL SCREENING MAMMOGRAM 3D/2D WITH CAD WITH AUGMENTATION: 09/21/2022 CLINICAL: Patient presents for routine screening. S/P bilateral augmentation. Comparison is made to exams dated: 09/18/2021 mammogram - [facility] and 09/17/2017 mammogram - [facility]. There are scattered areas of fibroglandular density in both breasts (category b / 25%-50% glandular tissue). Current study was also evaluated with a Computer Aided Detection (CAD) system. Bilateral breast implants are stable. No significant masses, calcifications, or other findings are seen in either breast. There has been no significant interval change. IMPRESSION: NEGATIVE There is no mammographic evidence of malignancy. A 1 year screening mammogram is recommended. Based on the Tyrer Cuzick model (a risk assessment model) the patient's lifetime risk is 3.4% and her 10 year risk is 2.3%. According to the ACR, ACS, and NCCN guidelines, an annual breast MRI exam along with mammogram is recommended if the patient's lifetime risk is 20% or greater. This exam was interpreted at Station ID: [id number]. NOTE: For mammograms, a report in lay terms will be sent to the patient. Approximately 15% of breast malignancies will not be visualized mammographically. In the management of a palpable breast mass, a negative mammogram must not discourage biopsy of a clinically suspicious lesion. Electronically Signed By: Doc flores/nikunj:09/23/2022 08:39:02 letter sent: Normal Exam ACR BI-RADS Category 1: Negative 3341F
== END ==
PROVIDERS: PCP Student in an Organized Health Care Education/Training Program; Referring Provider Student in an Organized Health Care Education/Training Program; Visit Provider Student in an Organized Health Care Education/Training Program
DX: Z12.31 Encounter for screening mammogram for malignant neoplasm of breast (principal); Z98.82 Breast implant status
CPT/HCPCS: 77063; 77067

== ENCOUNTER → 2023-03-10 08:56 | Outpatient (CLI) | payer MEDICARE, OTHER, SELFPAY ==
[2022-06-18 09:18] VITALS: BMI 28.5
[2023-03-10 10:25] LABS: Alanine Aminotransferase 25 IU/L (<35); Albumin Globulin Ratio 1.3 (1.0-2.8); Alkaline Phosphatase 71 U/L (38-126); Aspartate Aminotransferase 24 IU/L (14-36); BUN Creatinine Ratio 27.8 (6-22); Bilirubin Total 0.4 mg/dL (0.2-1.3); Blood Urea Nitrogen 22 mg/dL (7-17); Calcium 9.6 mg/dL (8.4-10.2); Carbon Dioxide 29 mmol/L (22-32); Chloride 102 mmol/L (98-107); Cholesterol 161 mg/dL (140-199); Estimated Glomerular Filt Rate > 60 mL/min (>60); Glucose 112 mg/dL (80-110); HDL Cholesterol 81 mg/dL (40-60); HEMOLYSIS < 15 (0-50); LDL Cholesterol Calculated 55 mg/dL (<100); Potassium 4.6 mmol/L (3.4-5.1); Sodium 138 mmol/L (137-145); Triglycerides 124 mg/dL (35-150)
[2023-03-10 10:28] LABS: Creatinine Urine Random 47.4 mg/dL
[2023-03-10 10:29] LABS: Microalbumin Urine Random < 0.6 mg/dL (0-1.6)
[2023-03-11 08:37] LABS: Labcorp Hemoglobin (Hb) A1c 6.8 % (4.8-5.6)
== END ==
PROVIDERS: PCP Student in an Organized Health Care Education/Training Program; Referring Provider Student in an Organized Health Care Education/Training Program; Visit Provider Student in an Organized Health Care Education/Training Program
DX: E11.69 Type 2 diabetes mellitus with other specified complication (principal); E78.5 Hyperlipidemia, unspecified; I10 Essential (primary) hypertension
CPT/HCPCS: 36415; 80053; 80061; 82043; 82570; 83036

== ENCOUNTER → 2023-07-11 09:37 | Outpatient (CLI) | payer MEDICARE, OTHER, SELFPAY ==
[2022-06-18 09:18] VITALS: BMI 28.5
[2023-07-11 10:31] LABS: Hemoglobin A1C% w Est Avg Glu 6.2 % (4.0-6.0)
[2023-07-11 10:42] LABS: Alanine Aminotransferase 21 IU/L (<35); Albumin 4.4 g/dL (3.5-5.0); Albumin Globulin Ratio 1.5 (1.0-2.8); Alkaline Phosphatase 63 U/L (38-126); Aspartate Aminotransferase 23 IU/L (14-36); BUN Creatinine Ratio 38.5 (6-22); Bilirubin Total 0.4 mg/dL (0.2-1.3); Blood Urea Nitrogen 25 mg/dL (7-17); Calcium 9.8 mg/dL (8.4-10.2); Carbon Dioxide 28 mmol/L (22-32); Chloride 103 mmol/L (98-107); Estimated Glomerular Filt Rate > 60 mL/min (>60); Globulin 2.9 g/dL (1.7-4.1); Glucose 134 mg/dL (80-110); HEMOLYSIS < 15 (0-50); Potassium 4.7 mmol/L (3.4-5.1); Sodium 140 mmol/L (137-145); Total Protein 7.3 g/dL (6.3-8.2)
[2023-07-11 10:51] LABS: Cholesterol 151 mg/dL (140-199); HDL Cholesterol 67 mg/dL (40-60); LDL Cholesterol Calculated 67 mg/dL (<100); Triglycerides 85 mg/dL (35-150)
== END ==
PROVIDERS: PCP Student in an Organized Health Care Education/Training Program; Referring Provider Family Medicine; Visit Provider Family Medicine
DX: E11.69 Type 2 diabetes mellitus with other specified complication (principal); E11.9 Type 2 diabetes mellitus without complications; E78.5 Hyperlipidemia, unspecified; I10 Essential (primary) hypertension
CPT/HCPCS: 36415; 80053; 80061; 83036

== ENCOUNTER → 2023-07-22 16:22 | Outpatient (CLI) | payer MEDICARE, OTHER, SELFPAY ==
[2022-06-18 09:18] VITALS: BMI 28.5
[2023-07-22 17:19] LABS: Add Manual Diff / Slide Review NO; Basophils Absolute Auto 100 /uL (0-100); Basophils Percent Auto 0.9 % (0-2); Eosinophils Absolute Auto 200 /uL (0-450); Eosinophils Percent Auto 1.8 % (2-4); Hematocrit 37.7 % (36-46); Hemoglobin 12.6 g/dL (12.0-16.0); Lymphocytes Absolute Auto 2600 /uL (1100-4500); Lymphocytes Percent Auto 28.7 % (25-40); Mean Corpuscular HGB Conc 33.5 % (30-36); Mean Corpuscular Hemoglobin 30.3 PG (26-34); Mean Corpuscular Volume 90.5 fL (80-100); Monocytes Absolute Auto 600 /uL (0-900); Monocytes Percent Auto 6.6 % (3-14); Neutrophils Absolute Auto 5700 /uL (1500-7000); Platelet Count 272 X10^3/uL (150-400); Red Blood Cell Count 4.16 X10^6/uL (4.0-5.2); Red Cell Distribution Width 13.6 % (11.6-14.8); White Blood Cell Count 9.2 X10^3/uL (4.5-11.0)
[2023-07-22 18:25] LABS: TSH w/ Reflex to FT4 3.53 uIU/mL (0.47-4.68)
[2023-07-22 18:45] LABS: Vitamin B12 529 pg/mL (239-931)
== END ==
PROVIDERS: PCP Family Medicine; Referring Provider Family Medicine; Visit Provider Family Medicine
DX: L65.9 Nonscarring hair loss, unspecified (principal)
CPT/HCPCS: 82607; 84443; 85025

== ENCOUNTER → 2023-11-14 07:39 | Outpatient (CLI) | payer MEDICARE, OTHER, SELFPAY ==
[2023-08-19 15:40] VITALS: BMI 28.5
--- NOTE | 2023-11-14 | DI.MG.S_ITS ---
BILATERAL DIGITAL SCREENING MAMMOGRAM 3D/2D WITH CAD WITH AUGMENTATION: 11/14/2023 CLINICAL: Routine screening. Comparison is made to exams dated: 09/21/2022 mammogram, 09/18/2021 mammogram - [facility], and 07/28/2020 mammogram - [facility]. There are scattered areas of fibroglandular density in both breasts (category b / 25%-50% glandular tissue). Current study was also evaluated with a Computer Aided Detection (CAD) system. Bilateral breast implants are stable. No significant masses, calcifications, or other findings are seen in either breast. There has been no significant interval change. IMPRESSION: NEGATIVE There is no mammographic evidence of malignancy. A 1 year screening mammogram is recommended. Based on the Tyrer Cuzick model (a risk assessment model) the patient's lifetime risk is 3.2% and her 10 year risk is 2.4%. According to the ACR, ACS, and NCCN guidelines, an annual breast MRI exam along with mammogram is recommended if the patient's lifetime risk is 20% or greater. This exam was interpreted at Station ID: [id number]. NOTE: For mammograms, a report in lay terms will be sent to the patient. Approximately 15% of breast malignancies will not be visualized mammographically. In the management of a palpable breast mass, a negative mammogram must not discourage biopsy of a clinically suspicious lesion. Electronically Signed By: Davy mendez/nikunj:11/14/2023 13:05:20 letter sent: Normal Exam ACR BI-RADS Category 1: Negative 3341F
== END ==
PROVIDERS: PCP Family Medicine; Referring Provider Family Medicine; Visit Provider Family Medicine
DX: Z12.31 Encounter for screening mammogram for malignant neoplasm of breast (principal)
CPT/HCPCS: 77063; 77067

== ENCOUNTER → 2023-12-04 11:17 | Outpatient (CLI) | payer MEDICARE, OTHER, SELFPAY ==
[2023-08-19 15:40] VITALS: BMI 28.5
== END ==
PROVIDERS: PCP Family Medicine; Visit Provider Urology
DX: N39.0 Urinary tract infection, site not specified (principal); D17.71 Benign lipomatous neoplasm of kidney; N95.2 Postmenopausal atrophic vaginitis; Z87.442 Personal history of urinary calculi
CPT/HCPCS: 81002; 87077; 87086; 87186; 99214

== ENCOUNTER → 2023-12-30 10:47 | Outpatient (CLI) | payer MEDICARE, OTHER, SELFPAY ==
[2023-08-19 15:40] VITALS: BMI 28.5
[2023-12-30 12:39] LABS: Hemoglobin A1C% w Est Avg Glu 6.1 % (4.0-6.0)
[2023-12-30 12:58] LABS: BUN Creatinine Ratio 33.8 (6-22); Blood Urea Nitrogen 24 mg/dL (7-17); Calcium 10.2 mg/dL (8.4-10.2); Carbon Dioxide 29 mmol/L (22-32); Chloride 101 mmol/L (98-107); Estimated Glomerular Filt Rate > 60 mL/min (>60); Glucose 106 mg/dL (80-110); HEMOLYSIS < 15 (0-50); Potassium 4.7 mmol/L (3.4-5.1); Sodium 137 mmol/L (137-145)
[2024-01-01 16:11] LABS: Hep C Virus Ab w/Reflex Quant NEGATIVE s/c (NEGATIVE)
== END ==
PROVIDERS: PCP Family Medicine; Referring Provider Family Medicine; Visit Provider Family Medicine
DX: Z11.59 Encounter for screening for other viral diseases (principal); E11.9 Type 2 diabetes mellitus without complications; I10 Essential (primary) hypertension
CPT/HCPCS: 36415; 80048; 83036; 86803

== ENCOUNTER → 2024-03-10 11:42 | Outpatient (CLI) | payer MEDICARE, OTHER, SELFPAY ==
[2023-08-19 15:40] VITALS: BMI 28.5
[2024-03-10 13:49] LABS: Blood Urea Nitrogen 31 mg/dL (7-17); Calcium 10.2 mg/dL (8.4-10.2); Carbon Dioxide 27 mmol/L (22-32); Chloride 104 mmol/L (98-107); Estimated Glomerular Filt Rate > 60 mL/min (>60); Glucose 105 mg/dL (80-110); HEMOLYSIS < 15 (0-50); Potassium 4.8 mmol/L (3.4-5.1); Sodium 138 mmol/L (137-145)
== END ==
PROVIDERS: PCP Family Medicine; Referring Provider Family Medicine; Visit Provider Family Medicine
DX: I10 Essential (primary) hypertension (principal)
CPT/HCPCS: 36415; 80048

== ENCOUNTER → 2024-04-01 15:06 | Outpatient (CLI) | payer MEDICARE, OTHER, SELFPAY ==
[2023-08-19 15:40] VITALS: BMI 28.5
--- NOTE | 2024-04-01 15:07 | DI.RAD.S_ITS ---
PROCEDURE: XR KNEE RT 3V INDICATIONS: Right knee pain TECHNIQUE: 3 views of the knee were acquired. COMPARISON: None. FINDINGS: Bones: No fractures or dislocations. Mild degenerative changes. No suspicious bony lesions. Soft tissues: No joint effusion. No suspicious soft tissue calcifications. IMPRESSION: Mild degenerative changes. Dictated by: Red Guajardo M.D. on 04/01/2024 at 17:07 Approved by: Red Guajardo M.D. on 04/01/2024 at 17:08
== END ==
PROVIDERS: PCP Family Medicine; Referring Provider Nurse Practitioner Family; Visit Provider Nurse Practitioner Family
DX: S86.911A Strain of unspecified muscle(s) and tendon(s) at lower leg level, right leg, initial encounter (principal); X58.XXXA Exposure to other specified factors, initial encounter
CPT/HCPCS: 73562

== ENCOUNTER → 2024-05-13 10:06 | Outpatient (CLI) | payer MEDICARE, OTHER, SELFPAY ==
[2023-08-19 15:40] VITALS: BMI 28.5
== END ==
PROVIDERS: PCP Family Medicine; Visit Provider Nurse Practitioner Family
DX: R30.0 Dysuria (principal)
CPT/HCPCS: 87077; 87086; 87186

== ENCOUNTER → 2024-06-24 10:54 | Outpatient (CLI) | payer MEDICARE, OTHER, SELFPAY ==
[2023-08-19 15:40] VITALS: BMI 28.5
[2024-06-24 12:21] LABS: Add Manual Diff / Slide Review NO; Basophils Absolute Auto 100 /uL (0-100); Eosinophils Absolute Auto 200 /uL (0-450); Eosinophils Percent Auto 2.2 % (2-4); Hematocrit 35.5 % (36-46); Lymphocytes Absolute Auto 2100 /uL (1100-4500); Mean Corpuscular HGB Conc 33.8 % (30-36); Mean Corpuscular Hemoglobin 32.1 PG (26-34); Mean Corpuscular Volume 95.1 fL (80-100); Monocytes Absolute Auto 500 /uL (0-900); Monocytes Percent Auto 6.3 % (3-14); Neutrophils Absolute Auto 4500 /uL (1500-7000); Neutrophils Percent Auto 61.5 % (50-75); Platelet Count 293 X10^3/uL (150-400); Red Blood Cell Count 3.73 X10^6/uL (4.0-5.2); Red Cell Distribution Width 12.6 % (11.6-14.8); White Blood Cell Count 7.3 X10^3/uL (4.5-11.0)
[2024-06-24 12:59] LABS: Alanine Aminotransferase 23 IU/L (<35); Albumin 4.5 g/dL (3.5-5.0); Albumin Globulin Ratio 1.7 (1.0-2.8); Alkaline Phosphatase 62 U/L (38-126); Aspartate Aminotransferase 26 IU/L (14-36); Bilirubin Total 0.6 mg/dL (0.2-1.3); Blood Urea Nitrogen 29 mg/dL (7-17); Calcium 9.8 mg/dL (8.4-10.2); Carbon Dioxide 28 mmol/L (22-32); Chloride 104 mmol/L (98-107); Cholesterol 153 mg/dL (140-199); Estimated Glomerular Filt Rate 59 mL/min (>60); Globulin 2.7 g/dL (1.7-4.1); Glucose 113 mg/dL (80-110); HDL Cholesterol 78 mg/dL (40-60); HEMOLYSIS < 15 (0-50); LDL Cholesterol Calculated 56 mg/dL (<100); Potassium 4.9 mmol/L (3.4-5.1); Sodium 138 mmol/L (137-145); Total Protein 7.2 g/dL (6.3-8.2); Triglycerides 96 mg/dL (35-150)
[2024-06-24 13:31] LABS: Thyroid Stimulating Hormone 2.32 uIU/mL (0.47-4.68)
== END ==
PROVIDERS: PCP Family Medicine; Referring Provider Family Medicine; Visit Provider Family Medicine
DX: E11.69 Type 2 diabetes mellitus with other specified complication (principal); I10 Essential (primary) hypertension; E78.5 Hyperlipidemia, unspecified; E11.9 Type 2 diabetes mellitus without complications; Z79.899 Other long term (current) drug therapy
CPT/HCPCS: 36415; 80053; 80061; 84443; 85025

== ENCOUNTER → 2024-08-20 09:34 | Outpatient (CLI) | payer MEDICARE, OTHER, SELFPAY ==
[2023-08-19 15:40] VITALS: BMI 28.5
[2024-08-20 11:19] LABS: BUN Creatinine Ratio 27.5 (6-22); Blood Urea Nitrogen 28 mg/dL (7-17); Calcium 9.6 mg/dL (8.4-10.2); Carbon Dioxide 28 mmol/L (22-32); Chloride 102 mmol/L (98-107); Estimated Glomerular Filt Rate 58 mL/min (>60); Glucose 106 mg/dL (80-110); HEMOLYSIS < 15 (0-50); Potassium 4.7 mmol/L (3.4-5.1); Sodium 136 mmol/L (137-145)
[2024-08-20 13:10] LABS: Hemoglobin A1C% w Est Avg Glu 6.4 % (4.0-6.0)
== END ==
PROVIDERS: PCP Family Medicine; Referring Provider Family Medicine; Visit Provider Family Medicine
DX: E11.9 Type 2 diabetes mellitus without complications (principal); N28.9 Disorder of kidney and ureter, unspecified
CPT/HCPCS: 36415; 80048; 83036

== ENCOUNTER → 2024-08-23 10:55 | Outpatient (CLI) | payer MEDICARE, OTHER, SELFPAY ==
[2023-08-19 15:40] VITALS: BMI 28.5
[2024-08-23 13:45] LABS: Collection Time Urine 24 Hours; Microalbumin 24 Hour Urine 11.4 mg/day (<30); Microalbumin Excretion Rate Ur 7.9 ug/min (<20); Microalbumin Urine Random < 0.6 mg/dL (0-1.6); Total Volume Urine 1900 mL
== END ==
PROVIDERS: PCP Family Medicine; Referring Provider Family Medicine; Visit Provider Family Medicine
DX: E11.9 Type 2 diabetes mellitus without complications (principal); N28.9 Disorder of kidney and ureter, unspecified; I10 Essential (primary) hypertension
CPT/HCPCS: 82043

== ENCOUNTER → 2024-12-16 08:54 | Outpatient (CLI) | payer MEDICARE, OTHER, SELFPAY ==
[2023-08-19 15:40] VITALS: BMI 28.5
[2024-12-16 10:40] LABS: Influenza A - CEPHEID Flu A NEGATIVE (NEGATIVE); Influenza B - CEPHEID Flu B NEGATIVE (NEGATIVE); Respiratory Syncytial Virus POSITIVE (Negative)
[2024-12-16 10:41] LABS: COVID-19 CEPHEID 4-PLEX PCR Negative (Negative)
== END ==
PROVIDERS: PCP Family Medicine; Visit Provider Physician Assistant Medical
DX: R05.1 Acute cough (principal)
CPT/HCPCS: 0241U

== ENCOUNTER → 2024-12-16 08:58 | Outpatient (CLI) | payer MEDICARE, OTHER, SELFPAY ==
[2023-08-19 15:40] VITALS: BMI 28.5
--- NOTE | 2024-12-16 08:59 | DI.RAD.S_ITS ---
PROCEDURE: XR CHEST 2V INDICATIONS: Cough TECHNIQUE: 2 views of the chest were acquired. COMPARISON: [facility], CR, XR CHEST 1V, 06/29/2022, 12:30. [facility], CR, XR CHEST 1V, 12/18/2021, 23:44. FINDINGS: Surgical changes and devices: None. Lungs and pleura: Lungs are clear. No pleural effusions or pneumothorax. Mediastinum: Mediastinal contours are normal. Heart size is normal. Bones and chest wall: No suspicious bony abnormalities. Soft tissues appear unremarkable. IMPRESSION: No acute cardiopulmonary abnormality is seen. Dictated by: Pop Barney M.D. on 12/16/2024 at 9:13 Approved by: Pop Barney M.D. on 12/16/2024 at 9:14
== END ==
PROVIDERS: PCP Family Medicine; Referring Provider Physician Assistant Medical; Visit Provider Physician Assistant Medical
DX: R05.9 Cough, unspecified (principal)
CPT/HCPCS: 0241U; 71046

== ENCOUNTER → 2025-01-14 12:19 | Outpatient (CLI) | payer MEDICARE, OTHER, SELFPAY ==
[2023-08-19 15:40] VITALS: BMI 28.5
[2025-01-14 13:37] LABS: BUN Creatinine Ratio 47.1 (6-22); Blood Urea Nitrogen 40 mg/dL (7-17); Calcium 10.4 mg/dL (8.4-10.2); Carbon Dioxide 24 mmol/L (22-32); Chloride 101 mmol/L (98-107); Estimated Glomerular Filt Rate > 60 mL/min (>60); Glucose 109 mg/dL (80-110); HEMOLYSIS < 15 (0-50); Hemoglobin A1C% w Est Avg Glu 6.2 % (4.0-6.0); Potassium 5.2 mmol/L (3.4-5.1); Sodium 137 mmol/L (137-145)
== END ==
LOC: LAB 12:20
PROVIDERS: PCP Family Medicine; Referring Provider Family Medicine; Visit Provider Family Medicine
DX: E11.9 Type 2 diabetes mellitus without complications (principal); I10 Essential (primary) hypertension; N28.9 Disorder of kidney and ureter, unspecified
CPT/HCPCS: 36415; 80048; 83036

== ENCOUNTER → 2025-02-14 | Outpatient (CLI) | payer MEDICARE, OTHER, SELFPAY ==
[2023-08-19 15:40] VITALS: BMI 28.5
--- NOTE | 2025-02-14 14:57 | DI.RAD.S_ITS ---
PROCEDURE: XR DEXA AXIAL SKELETON INDICATIONS: screening for osteoporosis progression COMPARISON: [facility], [place], XR DEXA AXIAL SKELETON, 01/24/2022, 11:10. FINDINGS: Lumbar Spine: Bone mineral density 0.952 (previously 1.104) g/cm2, T score -0.9 (previously-0.7). Left Femoral Neck: Bone mineral density 0.638 (previously 0.807) g/cm2, T score -1.9 (previously-1.7). Left Hip: Bone mineral density 0.811 (previously 0.898) g/cm2, T score -1.1 (previously-0.9). Fracture Risk Calculation (when applicable): 10-year fracture risk of a major osteoporotic fracture 11 percent and of a hip fracture 2.3 percent. (T score greater or equal to -1.0 to: NORMAL) (T score from -1.1 to -2.4: OSTEOPENIA) (T score less than or equal to -2.5: OSTEOPOROSIS) IMPRESSION: Osteopenia---recommend repeat DEXA in 2-3 years for reassessment. Follow-up guidelines as follows: Osteoporosis: Consider a repeat DEXA and Vertebral Fracture Assessment (VFA) exam in 2 years or sooner if medically necessary, to reassess this patient's status. Osteopenia: Consider a repeat DEXA in 2-3 years to reassess this patient's status, or if there is a new clinical indication. Normal: Consider a repeat DEXA in 5 years or sooner, or if there is a new clinical indication. All treatment decisions require clinical judgment and consideration of individual patient factors, including patient preferences, comorbidities, previous drug use, risk factors not captured in the FRAX model (e.g., frailty, falls, vitamin D deficiency, increased bone turnover, interval significant decline in bone density ) and possible under- or over-estimation of fracture risk by FRAX. In addition, the NOF Guide recommends that FDA-approved medical therapies be considered in postmenopausal women and men age >= 50 years with a: * Hip or vertebral (clinical or morphometric) fracture * T-score of <=-2.5 at the spine or hip * Ten-year fracture probability by FRAX of >= 3% for hip fracture or >=20% for major osteoporotic fracture. Dictated by: Casimiro Rodriguez M.D. on 02/15/2025 at 3:55 Approved by: Casimiro Rodriguez M.D. on 02/15/2025 at 3:57
--- NOTE | 2025-02-14 14:57 | DI.MG.S_ITS ---
MM screening mammo implant BI: 02/14/2025. BI-RADS: 2 CLINICAL: 74-year old female for bilateral screening mammogram. Tyrer-Cuzick lifetime risk of 4.3%. No personal or first-degree family history of breast cancer. The patient has bilateral implants. PRIOR EXAMS 11/14/2023, 09/21/2022, 09/18/2021, 07/28/2020. MAMMOGRAPHY TECHNIQUE: 2D and 3D (tomosynthesis) digital mammographic views obtained, with additional images as needed for full coverage. Current study was also evaluated with a Computer Aided Detection (CAD) system. DENSITY C. The breasts are heterogeneously dense, which may obscure small masses. IMPLANTS Breast implants present. MAMMOGRAPHY FINDINGS Bilateral: There are no suspicious masses, calcifications, or other findings in the breast. IMPRESSION: * No evidence of malignancy with benign findings. RECOMMENDATIONS Bilateral * Annual screening mammography. OVERALL ASSESSMENT CATEGORY BI-RADS-2: Benign. The [employer] recommends annual screening mammography beginning at age 40 for women with average risk of breast cancer. ELECTRONICALLY SIGNED: Evi Rob M.D. on 02/15/2025 at 08:40:23 AM PT Interpreting Station ID: [id number]
== END ==
PROVIDERS: PCP Family Medicine; Referring Provider Family Medicine; Visit Provider Family Medicine
DX: R92.333 Mammographic heterogeneous density, bilateral breasts (principal); Z12.31 Encounter for screening mammogram for malignant neoplasm of breast; Z98.82 Breast implant status; M81.0 Age-related osteoporosis without current pathological fracture
CPT/HCPCS: 77063; 77067; 77080